=== PATIENT | female | born 1940 | race Caucasian/White ===

== ENCOUNTER 2022-03-13 18:28 | Emergency (ER) | payer MEDICARE, SELFPAY ==
[2022-03-13] VITALS (16 sets, daily range): BP systolic 124–139; BP diastolic 84–103; PULSE 76–93; RESP 15–24; TEMP 37; O2SAT 95–100
--- NOTE | ~2022-03-13 | CT_ITS ---
EXAMINATION: CT brain wo con DATE: 03/13/2022 19:08 INDICATION: ams . TECHNIQUE: Computed tomography (CT) of the head was performed without intravenous contrast. The mA wa s adjusted according to patient size. Iterative reconstruction technique was employed. The dose-lengt h product was 605.33 mGy-cm. COMPARISON: None FINDINGS: No acute intracranial hemorrhage or extra-axial fluid collection. No hydrocephalus, mass, or herniation. No acute ischemic infarct. Unremarkable dural venous sinus attenuation. No acute osseous abnormality. The aerated spaces are clear. Moderate atrophy and chronic white matter change. Atherosclerotic intracranial calcification. Prior r ight mastoid surgery. IMPRESSION: No acute intracranial process. Reviewed, dictated and finalized at location K.
--- NOTE | ~2022-03-13 | XR_ITS ---
EXAMINATION: XR chest 1V portable Exam Date/Time: 03/13/2022 18:40 CDT HISTORY: ams, HX AFIB, HX DEMENTIA, LETHARGIC TODAY Comparison: None available. RESULT: Lines, tubes, and devices: None. Lungs and pleura: Clear. Cardiomediastinal silhouette: Unremarkable. Other: No acute osseous or upper abdominal finding. IMPRESSION: No acute cardiopulmonary process. Reviewed, dictated and finalized at location K.
--- NOTE | 2022-03-13 18:36 | ECG_ITS ---
Measurements Intervals [place] Rate: 87 P: [place]: 0 QRS: 26 QRSD: 102 T: -32 QT: 389 QTc: 469 Interpretive Statements RHYTHM IS INDETERMINATE DUE TO BASELINE ARTIFACT NO PREVIOUS ECG AVAILABLE FOR COMPARISON Electronically Signed On 03-14-2022 17:12:26 CDT by Elsa Viera M.D.
--- NOTE | 2022-03-13 18:37 | ED.GENADULT ---
HPI - General Adult General Chief complaint: Weakness Stated complaint: harder to arouse from nap Source: RN notes reviewed History of Present Illness HPI narrative: Patient presents emergency department from home via EMS for altered mental status. Per the patient's family the patient was sleeping and was very hard to arouse when EMS arrived the patient awake and quickly with a sternal rub and was awake and alert the patient does have a history of baseline dementia patient is currently laying in bed she has no complaints at this time she denies any recent illness she denies any fevers or chills chest pain shortness of breath or abdominal Related Data Home Medications Medication Instructions Recorded Confirmed acetaminophen 325 mg tablet 325 mg PO Q6H PRN 08/16/21 02/05/22 (Tylenol) calcium carbonate 600 mg calcium 600 mg PO DAILY 08/16/21 02/05/22 (1,500 mg) tablet celecoxib 200 mg capsule (Celebrex) 200 mg PO DAILY 08/16/21 02/05/22 wheat dextrin 3 gram/3.8 gram oral 1.5 g PO BID 08/16/21 02/05/22 powder (Benefiber Sugar Free (dextrin)) Allergies Allergy/AdvReac Type Severity Reaction Status Date / Time No Known Allergies Allergy Verified 02/05/22 10:50 Review of Systems Review of Systems: Gen.: Denies fevers or chills Eyes: Denies eye pain or visual change ENT: Denies congestion Respiratory: Denies shortness of breath or cough CV: Denies chest pain GI: Denies abdominal pain nausea, emesis Musculoskeletal: Denies back pain or muscle pain Neuro: See HPI Skin: Denies rash Except as documented, all other systems reviewed and negative [facility] Past Medical History Medical History Alzheimer's dementia Anticoagulation adequate Atrial fibrillation with normal ventricular rate Breast CA Mitral regurgitation Right acoustic neuroma Venous insufficiency (chronic) (peripheral) Surgical History Surgical History Hx of craniotomy Social History Social History Social History: Smoking packs per day: 1 Smoking cigarettes per day: 20.0 Years smoked: 25 Smoking pack-years: 25.00 Smoking status: Never smoker Tobacco type: cigarettes Second hand tobacco smoke exposure: No Smoking end date: 06/09/88 Alcohol intake: never Substance use: never Substance use type: does not use Gender identity (if verbalized by the patient): Female Sexual Orientation (if Verbalized by the Patient): Straight or Heterosexual Exam Narrative: APPEARANCE: No acute distress, nontoxic, resting in bed EYES: EOMI HEENT: Normocephalic, atraumatic, OMM RESPIRATORY: No respiratory distress Clear to auscultation bilaterally with no rhonchi wheezing or rales. CARDIOVASCULAR: Regular rate and rhythm without murmurs rubs or gallops. ABDOMINAL: Soft, nontender, nondistended, no rebound or guarding MUSCULOSKELETAl: Moves all extremities. No clubbing, cyanosis or edema. NEURO: Awake and alert x 2. Following commands, speech normal, no focal deficits SKIN:: Warm, dry. No rashes lesions or abrasions PSYCHIATRIC: Normal affect/mood, Course Course Emergency Course: Patient is remained awake and alert family is present they are comfortable taking the patient home and patient would like to return home Discussed with Dr. Marlena Cabrera presentation work-up agrees with plan for discharge Discussed with patient results of workup and diagnosis. Discussed need for follow-up with primary care, proper use of medication, and reasons to return to the emergency department. Patient understands and agrees to current treatment plan patient's family states they have an appointment with her on this coming Friday Vital Signs Vital signs: Vital Signs Temperature 98.6 F 03/13/22 18:32 Pulse Rate 88 03/13/22 18:32 Respiratory Rate 16 03/13/22 18:32 P
[2022-03-13 19:10] LABS: Basophils Absolute Auto 0.1 K/mm3 (0.0-0.1); Basophils Percent Auto 0.9 % (0.2-1.2); Eosinophils Absolute Auto 0.1 K/mm3 (0-0.3); Eosinophils Percent Auto 1.8 % (0-4.4); Hematocrit 48.9 % (37.0-47.0); Hemoglobin 15.9 g/dL (12.0-15.0); Immature Granulocyte Absolute 0.02 K/mm3 (0.00-0.031); Immature Granulocyte Percent A 0.3 % (0-0.5); Lymphocytes Absolute Auto 1.67 K/mm3 (0.9-3.2); Lymphocytes Percent Auto 24.5 % (18.3-44.2); Mean Corpuscular HGB Conc 32.5 g/dl (32-36); Mean Corpuscular Hemoglobin 33.1 pg (26-34); Mean Corpuscular Volume 101.7 fl (80-100); Mean Platelet Volume 12.7 fl (7.4-10.4); Monocytes Absolute Auto 0.4 K/mm3 (0.1-0.6); Monocytes Percent Auto 6.3 % (2.6-8.5); Neutrophils Absolute Auto 4.5 K/mm3 (1.3-6.7); Neutrophils Percent Auto 66.2 % (45.5-73.1); Platelet Count Result 146 k/mm3 (150-375); Red Blood Count 4.81 M/mm3 (4.2-5.4); White Blood Count 6.8 K/mm3 (4.5-10.0)
[2022-03-13 19:21] LABS: INR 1.4; Partial Thromboplastin Time 30.2 SECONDS (22.3-36.8); Prothrombin Time 16.2 Seconds (11.1-14.7)
[2022-03-13 19:23] LABS: Alanine Aminotransferase 41 U/L (6-35); Albumin Level 4.3 g/dL (3.5-5.1); Alkaline Phosphatase 71 U/L (38-126); Anion Gap 10 mmol/L (8-16); Aspartate Amino Transferase 38 U/L (14-36); Bilirubin,Total 0.6 mg/dL (0.2-1.3); Blood Urea Nitrogen 33 mg/dL (7-17); Calcium 9.7 mg/dL (8.4-10.2); Carbon Dioxide 26 mmol/L (22-30); Chloride 101 mmol/L (98-107); Estimated Glomerular Filt Rate 36; Glucose 90 mg/dL (65-110); Potassium 4.4 mmol/L (3.4-5.0); Sodium 137 mmol/L (137-145)
[2022-03-13 20:43] LABS: Appearance Urine Cloudy (Clear); Bilirubin Urine Negative (Negative); Blood Urine Trace-lysed (Negative); Color Urine Yellow (Yellow); Glucose Urine UA Negative (Negative); Ketones Urine 1+ mg/dL (Negative); Leukocyte Esterase Ur 1+ LEU/UL (Negative); Nitrate Urine Positive (Negative); Protein Urine Negative (Negative); Specific Grav Ur 1.025 (1.001-1.035); Urobilinogen Urine 0.2 mg/dL (<2.0); pH Urine 5.5 (5.0-9.0)
[2022-03-13 20:46] LABS: Bacteria Urine 2+ /hpf; Mucus Urine Rare /lpf; Squamous Epithelial Cell Urine Rare /hpf (Few); WBC Urine 51-75 /hpf
[2022-03-13 20:47] LABS: Add Urine Microscopic? YES
[2022-03-13] MEDS: SODIUM CHLORIDE 0.9% IV 1,000 ML 999 ML IV CONT (20:47)
== END 2022-03-13 22:01 | disposition home or self-care (01) ==
PROVIDERS: Emergency Provider Emergency Medicine; PCP Family Medicine
DX: N39.0 Urinary tract infection, site not specified (principal); N28.9 Disorder of kidney and ureter, unspecified; G30.9 Alzheimer's disease, unspecified; F02.80 Dementia in other diseases classified elsewhere, unspecified severity, without behavioral disturbance, psychotic disturbance, mood disturbance, and anxiety; I48.91 Unspecified atrial fibrillation; I34.0 Nonrheumatic mitral (valve) insufficiency; I87.2 Venous insufficiency (chronic) (peripheral); Z85.3 Personal history of malignant neoplasm of breast; Z87.891 Personal history of nicotine dependence; Z79.01 Long term (current) use of anticoagulants
CPT/HCPCS: 36415; 70450; 71045; 80053; 81001; 85025; 85610; 85730; 87077; 87086; 87186; 93005; 96361; 96365; 99284; J0696; J7030

== ENCOUNTER 2022-04-03 13:31 | Outpatient (CLI) | payer MEDICARE, SELFPAY ==
--- NOTE | ~2022-04-03 | MM_ITS ---
EXAMINATION: MM screening natacha BI w sacha HISTORY: Screening mammogram TECHNIQUE: Craniocaudal and mediolateral oblique 3-D tomosynthesis images were obtained and synthetic 2-D images were generated. CAD analysis was submitted and interpreted. COMPARISON: No prior mammogram is available for comparison at this institution. BREAST PARENCHYMAL COMPOSITION: There are scattered areas of fibroglandular density. FINDINGS: There are lumpectomy changes in the upper outer quadrant of the right breast. No suspicious mass, calcification, or architectural distortion are identified in either breast to suggest malignan cy. IMPRESSION: 1. No mammographic evidence of malignancy. 2. Recommend routine screening mammography while the patient remains in good health. BI-RADS Category 2: Benign finding(s). Reviewed, dictated and finalized at location A. IMPRESSION: 1. No mammographic evidence of malignancy. 2. Recommend routine screening mammography while the patient remains in good he alth. BI-RADS Category 2: Benign finding(s).
== END 2022-04-03 13:32 | disposition home or self-care (01) ==
PROVIDERS: PCP Family Medicine; Visit Provider Nurse Practitioner Gerontology
DX: Z12.31 Encounter for screening mammogram for malignant neoplasm of breast (principal)
CPT/HCPCS: 77063; 77067

== ENCOUNTER 2022-05-06 13:41 | Outpatient (CLI) | payer MEDICARE, SELFPAY ==
[2022-05-06 14:34] LABS: Basophils Absolute Auto 0.1 K/mm3 (0.0-0.1); Eosinophils Absolute Auto 0.1 K/mm3 (0-0.3); Eosinophils Percent Auto 1.9 % (0-4.4); Hematocrit 44.1 % (37.0-47.0); Hemoglobin 14.1 g/dL (12.0-15.0); Immature Granulocyte Absolute 0.01 K/mm3 (0.00-0.031); Immature Granulocyte Percent A 0.2 % (0-0.5); Lymphocytes Absolute Auto 1.31 K/mm3 (0.9-3.2); Lymphocytes Percent Auto 24.9 % (18.3-44.2); Mean Corpuscular Volume 103.3 fl (80-100); Mean Platelet Volume 12.5 fl (7.4-10.4); Monocytes Absolute Auto 0.4 K/mm3 (0.1-0.6); Monocytes Percent Auto 7.8 % (2.6-8.5); Neutrophils Absolute Auto 3.4 K/mm3 (1.3-6.7); Neutrophils Percent Auto 64.2 % (45.5-73.1); Platelet Count Result 157 k/mm3 (150-375); Red Blood Count 4.27 M/mm3 (4.2-5.4); Red Cell Distribution Width 13.2 % (11.5-14.5); White Blood Count 5.3 K/mm3 (4.5-10.0)
[2022-05-06 14:36] LABS: Anion Gap 8 mmol/L (8-16); Blood Urea Nitrogen 18 mg/dL (7-17); Calcium 9.1 mg/dL (8.4-10.2); Carbon Dioxide 27 mmol/L (22-30); Chloride 103 mmol/L (98-107); Estimated Glomerular Filt Rate 60; Glucose 89 mg/dL (65-110); Potassium 4.3 mmol/L (3.4-5.0); Sodium 138 mmol/L (137-145)
== END 2022-05-06 13:42 | disposition home or self-care (01) ==
PROVIDERS: PCP Family Medicine; Visit Provider Nurse Practitioner Gerontology
DX: R41.0 Disorientation, unspecified (principal); N39.0 Urinary tract infection, site not specified; I48.91 Unspecified atrial fibrillation
CPT/HCPCS: 36415; 80048; 85025

== ENCOUNTER 2022-07-16 14:57 | Outpatient (CLI) | payer MEDICARE, SELFPAY ==
--- NOTE | ~2022-07-16 | XR_ITS ---
EXAMINATION: XR hip BI 2V w AP pelvis DATE: 07/16/2022 15:29 INDICATION: Dorsalgia, unspecified. TECHNIQUE: An anteroposterior view of the pelvis and 2 views of each hip were obtained. COMPARISON: None. FINDINGS: Bone alignment is normal. No fracture. There is mild osteoarthritis of the hips. IMPRESSION: 1. Mild osteoarthritis of the hips. Reviewed, dictated and finalized at location A. [place]
--- NOTE | ~2022-07-16 | XR_ITS ---
EXAMINATION: XR lumbar spine min 4V DATE: 07/16/2022 15:29 INDICATION: Dorsalgia, unspecified. TECHNIQUE: 5 views of lumbar spine were obtained. COMPARISON: None. FINDINGS: There is 3 mm anterolisthesis of L4 on L5. There is mild chronic height loss of L5 vertebra l body. There is severely decreased disc height at L5-S1 with endplate remodeling. There is multileve l facet joint osteoarthritis, severe bilaterally at L4-L5. IMPRESSION: 1. Severe lower lumbar spondylosis. Reviewed, dictated and finalized at location A. [facility]
== END 2022-07-16 14:58 | disposition home or self-care (01) ==
PROVIDERS: PCP Family Medicine; Visit Provider Nurse Practitioner Gerontology
DX: M16.0 Bilateral primary osteoarthritis of hip (principal); M47.896 Other spondylosis, lumbar region
CPT/HCPCS: 72110; 73521

== ENCOUNTER 2022-10-27 17:49 | Inpatient (IN) | payer MEDICARE, SELFPAY ==
[2022-10-27] VITALS (7 sets, daily range): BP systolic 83–112; BP diastolic 60–95; PULSE 77–111; RESP 15–18; TEMP 36.8; O2SAT 92–99; BMI 23.8
--- NOTE | ~2022-10-27 | XR_ITS ---
EXAMINATION: XR chest 1V portable DATE: 10/28/2022 07:00 INDICATION: Altered mental status. TECHNIQUE: A single frontal view of the chest was obtained. COMPARISON: Chest single view 03/13/2022 FINDINGS: There is no pneumonia, pleural effusion, or pneumothorax. The heart size is normal. There a re surgical clips in right breast. IMPRESSION: 1. No acute cardiopulmonary disease. Reviewed, dictated and finalized at location A.
--- NOTE | ~2022-10-27 | CT_ITS ---
EXAMINATION: CT brain wo con DATE: 10/27/2022 18:34 INDICATION: AMS . TECHNIQUE: Computed tomography (CT) of the head was performed without intravenous contrast. The mA wa s adjusted according to patient size. Iterative reconstruction technique was employed. The dose-lengt h product was 529.67 mGy-cm. COMPARISON: 03/13/2022. FINDINGS: No acute intracranial hemorrhage or extra-axial fluid collection. No hydrocephalus, mass, or herniation. No acute ischemic infarct. Unremarkable dural venous sinus attenuation. No acute osseous abnormality. Status post right mastoidectomy. The aerated spaces are clear. Moderate atrophy and chronic white matter change. Atherosclerotic intracranial calcification. Right l ens replacement. IMPRESSION: No acute intracranial process. Reviewed, dictated and finalized at location K.
--- NOTE | 2022-10-27 17:55 | ECG_ITS ---
Measurements Intervals [place] Rate: 91 P: [place]: 0 QRS: 59 QRSD: 85 T: 212 QT: 350 QTc: 432 Interpretive Statements ATRIAL FIBRILLATION CANNOT RULE OUT SEPTAL INFARCT, AGE INDETERMINATE BORDERLINE ST-T WAVE ABNORMALITY- ANTEROLAT/INF LEADS BASELINE ARTIFACT- I, II, III, AVR, AVL, AVF, V1-V6 ABNORMAL ECG COMPARED TO ECG 03/13/2022 19:14:13 NO SIGNIFICANT CHANGES Electronically Signed On 10-27-2022 22:02:16 CDT by Gustavo Phillip D.O.
--- NOTE | 2022-10-27 18:12 | ED.GENADULT ---
HPI - General Adult General Chief complaint: Weakness Stated complaint: lethargic, weak Time Seen by Provider: 10/27/22 17:57 History of Present Illness HPI narrative: 82 old female presented the ED via EMS for evaluation of weakness. EMS was called by family due to concerns that she was having some low blood pressure and increased altered mental status. Upon arrival to the scene by EMS they noticed the patient had a facial droop. Family states this facial droop is not new. Patient's BP on scene was 70/40. EMS states that the family reported the patient was feeling weak last night and then worsened today. On upon arrival to the ED family states that the patient had a near syncopal episode as she was walking from the car to the porch. Patient does have severe dementia and daughter states that the patient resets approximate every 5 minutes. Daughter states that the patient is currently at her normal mental baseline which is confusion and mumbling speech. Related Data Home Medications Medication Instructions Recorded Confirmed acetaminophen 325 mg tablet 325 mg PO Q6H PRN 08/16/21 08/13/22 (Tylenol) Allergies Allergy/AdvReac Type Severity Reaction Status Date / Time meperidine [From Demerol] Allergy Vomiting Verified 08/14/22 14:22 cefdinir AdvReac Severe Diarrhea Verified 08/14/22 14:22 Penicillins AdvReac Rash Verified 08/14/22 14:22 Review of Systems Review of Systems: ROS unobtainable: Yes unobtainable due to medical condition PMFSH Past Medical History Medical History Alzheimer's dementia Anticoagulation adequate Atrial fibrillation with normal ventricular rate Breast CA Mitral regurgitation Right acoustic neuroma Venous insufficiency (chronic) (peripheral) Surgical History Surgical History Hx of craniotomy Social History Social History Social History: Smoking packs per day: 1 Smoking cigarettes per day: 20.0 Years smoked: 25 Smoking pack-years: 25.00 Smoking status: Former smoker Tobacco type: cigarettes Second hand tobacco smoke exposure: No Smoking end date: 06/09/88 Alcohol intake: never Substance use: never Substance use type: does not use Living arrangements: with family Occupation/Education: retired Gender identity (if verbalized by the patient): Female Sexual Orientation (if Verbalized by the Patient): Straight or Heterosexual Exam Narrative: APPEARANCE: Well appearing, no pain, no distress, well-nourished. HEAD: normocephalic, atraumatic. EYES: PERRLA/EOMI, conjunctivae clear. NOSE: Normal no drainage NECK: Supple. No adenopathy, no masses. RESPIRATORY: Airway patent, respirations nonlabored. Clear to auscultation bilaterally, no rales, rhonchi, wheezing. CARDIOVASCULAR: Regular rate and rhythm without murmurs rubs or gallops. ABDOMINAL: Soft, nontender, nondistended, normal bowel sounds MUSCULOSKELETAL: Moves all extremities. Strength/ROM intact, No edema, No calf tenderness. NEURO: Alert. Confused, neurovascular intact with no focal neurodeficit SKIN: Warm, dry. Normal Color Course Course Emergency Course: 82-year-old female presenting for evaluation of altered mental status and possible orthostatic hypotension. Patient is afebrile with no leukocytosis. Patient's blood pressures were soft upon arrival but did improve with rehydration. Patient's chemistries are similar to his baseline with a possible CARL. UA shows no evidence of urinary tract infection and patient was negative for influenza RSV and for COVID. Head CT showed no acute intracranial normality. EKG shows the patient is an her A-fib. Case was discussed with the hospitalist and patient was accepted for admission for further rehydration. Family was updated on the results of the work-up and plan for admiss
[2022-10-27 18:21] LABS: Basophils Percent Auto 0.7 % (0.2-1.2); Eosinophils Percent Auto 0.5 % (0-4.4); Hemoglobin 14.4 g/dL (12.0-15.0); Immature Granulocyte Absolute 0.02 K/mm3 (0.00-0.031); Immature Granulocyte Percent A 0.4 % (0-0.5); Immature Platelet Fraction Pct 9.3 % (0.9-11.2); Lymphocytes Absolute Auto 0.79 K/mm3 (0.9-3.2); Lymphocytes Percent Auto 14.3 % (18.3-44.2); Mean Corpuscular Hemoglobin 32.3 pg (26-34); Mean Corpuscular Volume 100.9 fl (80-100); Mean Platelet Volume 11.8 fl (7.4-10.4); Monocytes Absolute Auto 0.4 K/mm3 (0.1-0.6); Monocytes Percent Auto 7.6 % (2.6-8.5); Neutrophils Absolute Auto 4.2 K/mm3 (1.3-6.7); Neutrophils Percent Auto 76.5 % (45.5-73.1); Platelet Count Result 134 k/mm3 (150-375); Red Blood Count 4.46 M/mm3 (4.2-5.4); Red Cell Distribution Width 12.4 % (11.5-14.5); White Blood Count 5.5 K/mm3 (4.5-10.0)
[2022-10-27 18:35] LABS: INR 1.2; Partial Thromboplastin Time 27.8 SECONDS (22.3-36.8); Prothrombin Time 16.3 Seconds (11.1-14.7)
[2022-10-27 18:39] LABS: Alanine Aminotransferase 17 U/L (6-35); Albumin Level 3.4 g/dL (3.5-5.1); Alkaline Phosphatase 47 U/L (38-126); Anion Gap 8 mmol/L (8-16); Aspartate Amino Transferase 22 U/L (14-36); Bilirubin,Total 0.8 mg/dL (0.2-1.3); Blood Urea Nitrogen 16 mg/dL (7-17); Calcium 8.9 mg/dL (8.4-10.2); Carbon Dioxide 28 mmol/L (22-30); Chloride 104 mmol/L (98-107); Estimated CRCL calculation 30 ml/min; Estimated Glomerular Filt Rate 43; Glucose 131 mg/dL (65-110); Potassium 3.8 mmol/L (3.4-5.0); Sodium 140 mmol/L (137-145)
[2022-10-27] MEDS: SODIUM CHLORIDE 0.9% IV 1,000 ML 999 ML IV CONT (19:08)
[2022-10-27 19:51] LABS: Appearance Urine Clear (Clear); Bilirubin Urine Negative (Negative); Blood Urine Negative (Negative); Color Urine Yellow (Yellow); Glucose Urine UA Negative (Negative); Ketones Urine Negative (Negative); Leukocyte Esterase Ur Negative LEU/UL (Negative); Nitrate Urine Negative (Negative); Protein Urine Negative (Negative); Urobilinogen Urine 0.2 mg/dL (<2.0)
[2022-10-27 19:55] LABS: Influenza A QL RT-PCR Negative (Negative); Influenza B QL RT-PCR Negative (Negative); RSV RNA, RT-PCR Negative (Negative); SARS-CoV-2 RNA PCR Negative (Negative)
[2022-10-27 19:56] LABS: Add Urine Microscopic? NO
--- NOTE | 2022-10-27 21:31 | PM.IMHP ---
H&P: HPI History of Present Illness Date/Time: 10/27/22 21:31 Chief Complaint: ALTERED MENTAL STATUS Narrative: This is an 82-year-old female with past medical history significant for advanced dementia, atrial fibrillation, rate controlled anticoagulated, patient lives at home with daughter and splits up the time with son as well she was spending the weekend with the son when it was noted that she has not been her usual has not been eating well or drinking well, has been tired and spending most of the day in bed, drowsy. Most of the history is has been obtained upon talking with daughter who is at bedside as patient has advanced dementia and can not provide meaningful history. Preliminary workup has been for the most part unrevealing. Patient is been placed in observation for further evaluation management and treatment. EXAMINATION: CT brain wo con DATE: 10/27/2022 18:34 INDICATION: AMS . TECHNIQUE: Computed tomography (CT) of the head was performed without intravenous contrast. The mA was adjusted according to patient size. Iterative reconstruction technique was employed. The dose-length product was 529.67 mGy-cm. COMPARISON: 03/13/2022. FINDINGS: No acute intracranial hemorrhage or extra-axial fluid collection. No hydrocephalus, mass, or herniation. No acute ischemic infarct. Unremarkable dural venous sinus attenuation. No acute osseous abnormality. Status post right mastoidectomy. The? aerated spaces are clear. Moderate atrophy and chronic white matter change. Atherosclerotic intracranial calcification. Right lens replacement. IMPRESSION:? No acute intracranial process. Review of Systems Review of Systems: ROS unobtainable: Yes unobtainable due to medical condition ( Advanced dementia) [facility] Past Medical History Medical History Alzheimer's dementia Anticoagulation adequate Atrial fibrillation with normal ventricular rate Breast CA Mitral regurgitation Right acoustic neuroma Venous insufficiency (chronic) (peripheral) Surgical History Surgical History Hx of craniotomy Family History Family History (Updated 10/27/22 @ 22:38 by Jacinta Calixto RN) Other Unknown family medical history Social History Social History Social History: Smoking packs per day: 1 Smoking cigarettes per day: 20.0 Years smoked: 25 Smoking pack-years: 25.00 Smoking status: Former smoker Second hand tobacco smoke exposure: No Alcohol intake: never Substance use: never Substance use type: does not use Lack of Transportation: No Lack of Food: Never True Current Housing: I Have Housing Concerned About Future Housing: No Difficulty Paying Gas/Electric Bills: No Difficulty Paying for Meds: No Currently Unemployed: No Education: Trade/Vocational Certificate Difficulty w/ Childcare or Family Care: No Living arrangements: with family Occupation/Education: retired Gender identity (if verbalized by the patient): Female Sexual Orientation (if Verbalized by the Patient): Straight or Heterosexual Spiritual care concerns: No Meds Home Medications and Allergies Home Medications Medication Instructions Recorded Confirmed Type acetaminophen 325 mg tablet 650 mg PO BID 08/16/21 10/27/22 History (Tylenol) metoprolol succinate 50 mg 50 mg PO DAILY #90 tabs 02/05/22 10/27/22 Rx tablet,extended release 24 hr Benefiber (guar gum) 1 tab-cap PO BID PRN Constipation 10/27/22 10/27/22 History Marlow' Colon Health 1 tab-cap PO DAILY PRN diahrea 10/27/22 10/27/22 History apixaban 5 mg tablet (Eliquis) 5 mg PO BID 10/27/22 10/27/22 History cranberry conc-vit 1 ea PO DAILY PRN UTI 10/27/22 10/27/22 History K-kwawagd-PWM-bromelain 3,875 mg/30 mL oral liquid (UTI-Stat) memantine 10 mg tablet 10 mg PO B
--- NOTE | 2022-10-27 22:23 | ADMGEN ---
This patient, Kalee Vo, was admitted to Medical Room 254-01. Patient/family oriented to hospital policies and general routines including ID bracelet, bed and alarms, visiting hours, pain management, procedures, bathroom and other care routines, personal items, smoking policy, room service/diet, and visiting hours. Information on how to activate the Rapid Response Team has been discussed. Patient/Family are encouraged to report perceived risks to care and to ask questions if they do not understand what they are told or what they should do.
[2022-10-27] MEDS: SODIUM CHLORIDE 0.9% IV 1,000 ML 75 ML IV CONT (22:36)
[2022-10-28 05:20] VITALS: BP 115/82; PULSE 83; RESP 20; TEMP 36.8; O2SAT 100
[2022-10-28 08:00] VITALS: O2SAT 100
--- NOTE | 2022-10-28 10:04 | PM.IMPN ---
Progress Note: A&P Assessment and Plan (1) AMS (altered mental status): Code(s): R41.82 - Altered mental status, unspecified Status: Acute Assessment and Plan: 10/28/2022: chart reviewed. Patient presented with generalized weakness and altered sensorium. Blood pressure was low right-sided facial droop is not new. CT head was negative. Blood pressure improved with IV fluid bolus. Near syncopal episode. Has severe vascular dementia at baseline. AFib of chronic rate controlled on metoprolol. Anticoagulated with Eliquis chronically. History of right a caustic neuroma. Influenza RSV and COVID negative. UA negative for UTI. Chest x-ray is negative for any pneumonia. WBC count is normal. Patient afebrile. Patient currently somnolent mumbles on stimulation (2) Atrial fibrillation: Code(s): I48.91 - Unspecified atrial fibrillation Status: Acute Assessment and Plan: rate control and anticoagulated (3) Weakness: Code(s): R53.1 - Weakness Status: Acute Assessment and Plan: patient with poor per orally intake encourage per oral supportive care suspect progression of dementia Plan Recheck labs in a.m. Subjective Date/time seen: 10/28/22 10:04 Interval history: Chart reviewed. Patient presented with generalized weakness and altered sensorium. Blood pressure was low right-sided facial droop is not new. CT head was negative. Blood pressure improved with IV fluid bolus. Near syncopal episode. Has severe vascular dementia at baseline. AFib of chronic rate controlled on metoprolol. Anticoagulated with Eliquis chronically. History of right a caustic neuroma. Influenza RSV and COVID negative. UA negative for UTI. Chest x-ray is negative for any pneumonia. WBC count is normal. Patient afebrile. Patient currently somnolent mumbles on stimulation Review of Systems Review of Systems: ROS unobtainable: Yes unobtainable due to medical condition ( Advanced dementia) Exam Narrative: APPEARANCE: Somnolent, does not appear in acute distress HEAD: normocephalic, atraumatic. EYES: PERRLA/EOMI, conjunctivae clear. NOSE: Normal no drainage NECK: Supple. No adenopathy, no masses. RESPIRATORY: Airway patent, respirations nonlabored. Clear to auscultation bilaterally, no rales, rhonchi, wheezing. CARDIOVASCULAR: Regular rate and rhythm without murmurs rubs or gallops. ABDOMINAL: Soft, nontender, nondistended, normal bowel sounds MUSCULOSKELETAL: Moves all extremities. Strength/ROM intact, No edema, No calf tenderness. NEURO: Somnolent SKIN: Warm, dry. Normal Color Objective Data Vital Signs Vital Signs: Vital Signs - 24 hr 10/27/22 17:48 10/27/22 18:00 10/27/22 19:00 Temperature 98.3 F Pulse Rate 111 H 85 88 Respiratory Rate 16 18 15 Blood Pressure 102/83 83/60 L 93/72 L Pulse Oximetry 99 92 97 Oxygen Delivery 10/27/22 20:00 10/27/22 21:00 10/27/22 21:30 Temperature Pulse Rate 77 91 79 Respiratory Rate 16 15 16 Blood Pressure 111/95 H 100/61 98/75 L Pulse Oximetry 98 93 95 Oxygen Delivery 10/27/22 22:00 10/27/22 23:08 10/27/22 22:00 Temperature 98.3 F Pulse Rate 88 104 H Respiratory Rate 16 18 Blood Pressure 112/76 111/79 Pulse Oximetry 97 99 Oxygen Delivery Room Air 10/28/22 05:20 Temperature 98.2 F Pulse Rate 83 Respiratory Rate 20 Blood Pressure 115/82 Pulse Oximetry 100 Oxygen Delivery Intake/Output Intake/Output: Intake & Output 10/25/22 10/26/22 10/27/22 10/28/22 23:59 23:59 23:59 23:59 Intake Total 1000 Output Total 600 Balance 1000 -600 Meds/Results Medications: Active Medications Generic Name Dose Route Start Last Admin Trade Name [place] PRN Reason Stop Dose Admin Acetaminophen 650 mg 10/28/22 09:00 Acetaminophen 325 Mg Tablet PO BID [facility] Apixaban 5 mg 10/28/22 09:00 Apixaban 5 Mg Tablet PO Q12HR [facility] Calcium Polycarbophil 625 mg 10/28/22 01:2
[2022-10-28] MEDS: MEMANTINE 10 MG TABLET PO ×2 (10:43→20:59)
[2022-10-28] MEDS: APIXABAN 5 MG TABLET PO ×2 (10:43→20:59)
[2022-10-28] MEDS: SODIUM CHLORIDE 0.9% IV 1,000 ML 75 ML IV CONT (12:04)
[2022-10-28 14:00] VITALS: BP 105/86; PULSE 94; RESP 18; TEMP 36.3; O2SAT 100
--- NOTE | 2022-10-28 15:16 | PCCCNOTE ---
On 10/28/22, the student, Carlotta Middleton, provided care and completed [facility] documentation on this patient. I have reviewed the student's documentation and agree with the findings.
[2022-10-28 18:24] VITALS: PULSE 90
[2022-10-28] MEDS: ACETAMINOPHEN 325 MG TABLET 650 MG PO (18:24)
[2022-10-28] MEDS: METOPROLOL SUCCINATE EXT REL 50 MG TABCR PO (18:24)
[2022-10-28] MEDS: ROSUVASTATIN 5 MG TABLET PO (20:59)
[2022-10-28 21:19] VITALS: BP 107/71; PULSE 102; RESP 18; TEMP 35.8; O2SAT 97
[2022-10-29] MEDS: SODIUM CHLORIDE 0.9% IV 1,000 ML 75 ML IV CONT (02:31)
[2022-10-29 03:19] VITALS: BP 114/84; PULSE 100; RESP 18; TEMP 36.2; O2SAT 97
[2022-10-29 05:48] LABS: Basophils Percent Auto 0.5 % (0.2-1.2); Eosinophils Absolute Auto 0.1 K/mm3 (0-0.3); Eosinophils Percent Auto 1.6 % (0-4.4); Hemoglobin 13.7 g/dL (12.0-15.0); Immature Granulocyte Absolute 0.01 K/mm3 (0.00-0.031); Immature Granulocyte Percent A 0.2 % (0-0.5); Immature Platelet Fraction Pct 7.9 % (0.9-11.2); Lymphocytes Percent Auto 29.9 % (18.3-44.2); Mean Corpuscular HGB Conc 32.6 g/dl (32-36); Mean Corpuscular Hemoglobin 32.9 pg (26-34); Mean Platelet Volume 11.8 fl (7.4-10.4); Monocytes Absolute Auto 0.5 K/mm3 (0.1-0.6); Monocytes Percent Auto 8.5 % (2.6-8.5); Neutrophils Absolute Auto 3.4 K/mm3 (1.3-6.7); Neutrophils Percent Auto 59.3 % (45.5-73.1); Platelet Count Result 120 k/mm3 (150-375); Red Blood Count 4.16 M/mm3 (4.2-5.4); Red Cell Distribution Width 12.4 % (11.5-14.5); White Blood Count 5.7 K/mm3 (4.5-10.0)
[2022-10-29 06:31] LABS: Alanine Aminotransferase 14 U/L (6-35); Albumin Level 3.1 g/dL (3.5-5.1); Alkaline Phosphatase 46 U/L (38-126); Anion Gap 3 mmol/L (8-16); Aspartate Amino Transferase 21 U/L (14-36); Bilirubin,Total 0.7 mg/dL (0.2-1.3); Blood Urea Nitrogen 11 mg/dL (7-17); Calcium 8.7 mg/dL (8.4-10.2); Carbon Dioxide 26 mmol/L (22-30); Chloride 110 mmol/L (98-107); Estimated CRCL calculation 36 ml/min; Estimated Glomerular Filt Rate 53; Glucose 84 mg/dL (65-110); Magnesium 1.8 mg/dL (1.6-2.3); Potassium 3.8 mmol/L (3.4-5.0); Sodium 139 mmol/L (137-145)
[2022-10-29] MEDS: MEMANTINE 10 MG TABLET PO (08:08)
[2022-10-29] MEDS: ACETAMINOPHEN 325 MG TABLET 650 MG PO (08:08)
[2022-10-29] MEDS: APIXABAN 5 MG TABLET PO (08:08)
--- NOTE | 2022-10-29 12:20 | PM.DS ---
DS: Admitting Diagnosis Discharge Date 10/29/2022 Admitting Diagnosis Altered mental status DS: Discharge Diagnosis Discharge Diagnosis (1) AMS (altered mental status): Code(s): R41.82 - Altered mental status, unspecified Status: Acute (2) Atrial fibrillation: Code(s): I48.91 - Unspecified atrial fibrillation Status: Acute (3) Weakness: Code(s): R53.1 - Weakness Status: Acute DS: Summary Hospital Course Hospital Course: Patient presented with generalized weakness and altered sensorium.? Blood pressure was low upon presentation. She has right-sided facial droop which is not new.? CT head was negative.? Blood pressure improved with IV fluid bolus.? Near syncopal episode prior to presentation as well. 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 AFib of chronic rate controlled on metoprolol.? Anticoagulated with Eliquis chronically.? History of right acoustic neuroma.? Influenza RSV and COVID negative.? UA negative for UTI.? Chest x-ray is negative for any pneumonia.? WBC count is normal.? Patient afebrile.? Patient currently somnolent mumbles on stimulation how over improved with IV hydration was back to baseline the time of discharge. Going to get discharged back to her family at home. Time Spent with Patient Time attestation: Total time spent providing and/or coordinating discharge services: 35 minutes Exam Narrative: APPEARANCE: Alert and conversant does not appear in acute distress HEAD: normocephalic, atraumatic. EYES: PERRLA/EOMI, conjunctivae clear. NOSE: Normal no drainage NECK: Supple. No adenopathy, no masses. RESPIRATORY: Airway patent, respirations nonlabored. Clear to auscultation bilaterally, no rales, rhonchi, wheezing. CARDIOVASCULAR: Regular rate and rhythm without murmurs rubs or gallops. ABDOMINAL: Soft, nontender, nondistended, normal bowel sounds MUSCULOSKELETAL: Moves all extremities. Strength/ROM intact, No edema, No calf tenderness. NEURO: Alert and conversant SKIN: Warm, dry. Normal Color DS: Data Data Completed and Pending Labs on day of discharge: Labs from last 24 hours 10/29/22 05:40 WBC 5.7 RBC 4.16 L Hgb 13.7 Hct 42.0 MCV 101.0 H MCH 32.9 MCHC 32.6 RDW 12.4 Plt Count 120 L MPV 11.8 H Immature Gran % (Auto) 0.2 Neut % (Auto) 59.3 Lymph % (Auto) 29.9 [place] % (Auto) 8.5 Eos % (Auto) 1.6 Baso % (Auto) 0.5 Lymph # (Auto) 1.70 [place] # (Auto) 0.5 Eos # (Auto) 0.1 Baso # (Auto) 0.0 Abs Immat Gran (auto) 0.01 Absolute Neuts (auto) 3.4 Absolute Nucleated RBC 0.0 Nucleated RBC % 0.0 % Immature Plt Fraction 7.9 Sodium 139 Potassium 3.8 Chloride 110 H Carbon Dioxide 26 Anion Gap 3 L BUN 11 D Creatinine 1.00 Estim Creat Clear Calc 36 Estimated GFR 53 L Glucose 84 Calcium 8.7 Magnesium 1.8 Total Bilirubin 0.7 AST 21 ALT 14 Alkaline Phosphatase 46 Total Protein 6.0 L Albumin 3.1 L Imaging Radiologist's impression: ITS Impressions Head CT 10/27/22 18:47 IMPRESSION: No acute intracranial process. Chest X-Ray 10/28/22 07:20 IMPRESSION: 1. No acute cardiopulmonary disease. Discharge Plan Discharge Attending physician on discharge: Jaspal Ge Discharging Clinician: Jaspal Ge Anticipated Discharge Date/Time: 10/29/22 12:16 Patient Disposition: Home, Self-Care Activity: as tolerated Diet: regular Patient Instructions: Antibiotic Form, Apixaban (By mouth) Stand Alone Forms: General Discharge Information Follow-up/Referrals: Marlena Cabrera MD [Primary Care Provider] - 1 Week Discharge Medications: Continued acetaminophen [Tylenol] 325 mg tablet 650 mg PO BID metoprolol succinate 50 mg tablet extended release 24 hr 50 mg PO DAILY Qty: 90 2RF UTI-Stat 3,875 mg/30 mL Liquid 1 ea PO DAILY PRN (Reason: UTI) Benefiber (guar gum) 1 tab-cap PO BID PRN (Reason: Constipation) Jeffrey
== END 2022-10-29 13:45 | disposition home or self-care (01) | DRG 316 ==
LOC: ANHED 18:32 → ANH2MED 21:46
PROVIDERS: Admitting Provider Internal Medicine; Emergency Provider Emergency Medicine; PCP Family Medicine; Visit Provider Internal Medicine
DX: I95.9 Hypotension, unspecified (principal); R55 Syncope and collapse; E86.0 Dehydration; E86.1 Hypovolemia; R41.82 Altered mental status, unspecified; F01.C0 Vascular dementia, severe, without behavioral disturbance, psychotic disturbance, mood disturbance, and anxiety; I48.91 Unspecified atrial fibrillation; R53.1 Weakness; R29.810 Facial weakness; I87.2 Venous insufficiency (chronic) (peripheral); Z20.822 Contact with and (suspected) exposure to COVID-19; Z79.01 Long term (current) use of anticoagulants; Z85.3 Personal history of malignant neoplasm of breast; Z87.891 Personal history of nicotine dependence
CPT/HCPCS: 36415; 70450; 71045; 80053; 81003; 83735; 85025; 85055; 85610; 85730; 87637; 93005; 96360; 96361; 99285; A9270; G0378; J7030

== ENCOUNTER 2023-01-02 15:45 | Emergency (ER) | payer MEDICARE, SELFPAY ==
[2023-01-02] VITALS (15 sets, daily range): BP systolic 93–131; BP diastolic 77–113; PULSE 69–116; RESP 10–35; TEMP 36.9; O2SAT 91–99
--- NOTE | 2023-01-02 16:07 | ED.FEMALEGU ---
HPI - Female Genitourinary General Chief complaint: Urogenital-Female Stated complaint: UTI Time Seen by Provider: 01/02/23 15:51 History of Present Illness HPI Narrative: Patient is an 82-year-old female with a history of vascular dementia presenting with concerns for UTI. Family is at bedside and provides most of the history. States that she has been having episodes of confusion for the last several days. They tested her urine at home with an at-home urinalysis kit and it was faintly positive. States that she has been somewhat combative today which is not like her. Denies cough or respiratory distress. No vomiting. No diarrhea. Patient denies any complaints at this time. Related Data Home Medications Medication Instructions Recorded Confirmed acetaminophen 325 mg tablet 650 mg PO BID 08/16/21 01/07/23 (Tylenol) Benefiber (guar gum) 1 tab-cap PO BID PRN Constipation 10/27/22 01/07/23 [employer] 1 tab-cap PO DAILY PRN diahrea 10/27/22 01/07/23 apixaban 5 mg tablet (Eliquis) 5 mg PO BID 10/27/22 01/07/23 cranberry conc-vit 1 ea PO DAILY PRN UTI 10/27/22 01/07/23 P-[id number]-[id number]-bromelain 3,875 mg/30 mL oral liquid (UTI-Stat) Allergies Allergy/AdvReac Type Severity Reaction Status Date / Time meperidine [From Demerol] Allergy Vomiting Verified 01/07/23 14:48 cefdinir AdvReac Severe Diarrhea Verified 01/07/23 14:48 Penicillins AdvReac Rash Verified 01/07/23 14:48 Review of Systems Review of Systems: All systems reviewed & are unremarkable except as noted in HPI and below PMFSH Past Medical History Medical History Alzheimer's dementia Anticoagulation adequate Atrial fibrillation with normal ventricular rate Breast CA Mitral regurgitation Right acoustic neuroma Venous insufficiency (chronic) (peripheral) Surgical History Surgical History Hx of craniotomy Family History Family History Other Unknown family medical history Social History Social History Social History: Smoking packs per day: 1 Smoking cigarettes per day: 20.0 Years smoked: 25 Smoking pack-years: 25.00 Smoking status: Former smoker Second hand tobacco smoke exposure: No Alcohol intake: never Substance use: never Substance use type: does not use Lack of Transportation: No Lack of Food: Never True Current Housing: I Have Housing Concerned About Future Housing: No Difficulty Paying Gas/Electric Bills: No Difficulty Paying for Meds: No Currently Unemployed: No Education: Trade/Vocational Certificate Difficulty w/ Childcare or Family Care: No Living arrangements: with family Occupation/Education: retired Gender identity (if verbalized by the patient): Female Sexual Orientation (if Verbalized by the Patient): Straight or Heterosexual Spiritual care concerns: No Exam Narrative: GENERAL: In no acute distress, pleasantly demented HEAD: Normocephalic, atraumatic. EYES: PERRLA and EOMI. ENT: Nares clear, no rhinorrhea or epistaxis. Mucous membranes moist. NECK: Supple. CHEST: Clear to auscultation. No respiratory distress. HEART: Regular rate and rhythm ABDOMEN: Soft, nontender, nondistended EXTREMITIES: Normal range of motion. No edema. SKIN: Warm, dry, no rash. NEURO: No focal deficits. Alert and oriented x1 PSYCH: Normal mood and affect. Course Vital Signs Vital signs: Vital Signs Temperature 98.4 F 01/02/23 15:49 Pulse Rate 69 01/02/23 15:49 Respiratory Rate 10 L 01/02/23 15:49 Pulse Oximetry 99 01/02/23 15:49 Oxygen Delivery Room Air 01/02/23 15:49 Temperature 98.4 F 01/02/23 15:49 Pulse Rate 100 01/02/23 20:40 Respiratory Rate 15 01/02/23 20:40 Blood Pressure 106/92 H
[2023-01-02 16:53] LABS: Basophils Percent Auto 0.8 % (0.2-1.2); Eosinophils Absolute Auto 0.1 K/mm3 (0-0.3); Eosinophils Percent Auto 1.6 % (0-4.4); Hemoglobin 15.2 g/dL (12.0-15.0); Immature Granulocyte Absolute 0.01 K/mm3 (0.00-0.031); Immature Granulocyte Percent A 0.2 % (0-0.5); Lymphocytes Absolute Auto 1.04 K/mm3 (0.9-3.2); Lymphocytes Percent Auto 20.9 % (18.3-44.2); Mean Corpuscular HGB Conc 31.7 g/dl (32-36); Mean Corpuscular Hemoglobin 32.1 pg (26-34); Mean Corpuscular Volume 101.3 fl (80-100); Mean Platelet Volume 10.7 fl (7.4-10.4); Monocytes Absolute Auto 0.4 K/mm3 (0.1-0.6); Monocytes Percent Auto 7.4 % (2.6-8.5); Neutrophils Absolute Auto 3.4 K/mm3 (1.3-6.7); Neutrophils Percent Auto 69.1 % (45.5-73.1); Platelet Count Result 166 k/mm3 (150-375); Red Blood Count 4.74 M/mm3 (4.2-5.4); Red Cell Distribution Width 12.4 % (11.5-14.5)
[2023-01-02 17:04] LABS: Appearance Urine Clear (Clear); Bacteria Urine 2+ /hpf; Bilirubin Urine Negative (Negative); Blood Urine Negative (Negative); Color Urine Yellow (Yellow); Glucose Urine UA Negative (Negative); Ketones Urine Negative (Negative); Leukocyte Esterase Ur 2+ LEU/UL (Negative); Nitrate Urine Positive (Negative); Non Pathogenic Casts 0-2; Protein Urine Negative (Negative); RBC Urine 0-2 /hpf (0-2); Specific Grav Ur 1.011 (1.001-1.035); Squamous Epithelial Cell Urine None seen /hpf (Few); Urobilinogen Urine 0.2 mg/dL (<2.0); pH Urine 7.5 (5.0-9.0)
[2023-01-02 17:05] LABS: Add Urine Microscopic? YES; Anion Gap 7 mmol/L (8-16); Blood Urea Nitrogen 14 mg/dL (7-17); Calcium 9.6 mg/dL (8.4-10.2); Carbon Dioxide 31 mmol/L (22-30); Chloride 102 mmol/L (98-107); Estimated Glomerular Filt Rate 60; Glucose 98 mg/dL (65-110); Potassium 3.8 mmol/L (3.4-5.0); Sodium 140 mmol/L (137-145)
--- NOTE | 2023-01-02 17:27 | PC.NURSE ---
Pt pulled out IV when she lifted her arm. Pt did not intentionally pull out IV.
[2023-01-02] MEDS: LACTATED RINGERS 1,000 ML 999 ML IV CONT (18:33)
[2023-01-02] MEDS: CIPROFLOXACIN 500 MG TAB PO (18:34)
== END 2023-01-02 20:42 ==
PROVIDERS: Emergency Provider Emergency Medicine; PCP Family Medicine
DX: N39.0 Urinary tract infection, site not specified (principal); F01.50 Vascular dementia, unspecified severity, without behavioral disturbance, psychotic disturbance, mood disturbance, and anxiety; G30.9 Alzheimer's disease, unspecified; F02.80 Dementia in other diseases classified elsewhere, unspecified severity, without behavioral disturbance, psychotic disturbance, mood disturbance, and anxiety; I48.91 Unspecified atrial fibrillation; I34.0 Nonrheumatic mitral (valve) insufficiency; I87.2 Venous insufficiency (chronic) (peripheral); Z85.3 Personal history of malignant neoplasm of breast; Z87.891 Personal history of nicotine dependence; Z79.01 Long term (current) use of anticoagulants
CPT/HCPCS: 36415; 80048; 81001; 85025; 87077; 87086; 87088; 96360; 96361; 99283; A9270; J7120

== ENCOUNTER 2023-05-31 14:55 | Inpatient (IN) | payer MEDICARE, SELFPAY ==
[2023-05-31] VITALS (22 sets, daily range): BP systolic 104–126; BP diastolic 71–108; PULSE 89–168; RESP 14–27; TEMP 36.1; O2SAT 97–100
--- NOTE | ~2023-05-31 | CT_ITS ---
EXAMINATION: CT brain wo con DATE: 06/01/2023 11:13 INDICATION: Transient alteration of awareness. Altered mental state. TECHNIQUE: Computed tomography (CT) of the head was performed without intravenous contrast. The mA wa s adjusted according to patient size. Iterative reconstruction technique was employed. Exam dose: 52 9.67 mGy-cm total exam DLP. COMPARISON: 11/12/2022 CT brain FINDINGS: Bilateral carotid siphon internal carotid artery calcifications, right vertebral artery pasha cification, basilar artery calcification. There is nonspecific diminished attenuation of the cerebral white matter, likely due to chronic small vessel ischemic changes. There is prominent cerebral cortical volume loss, particularly at the frontal and temporal lobes. The re is prominent cerebellar volume loss as well. No intracranial mass lesion or hemorrhage, midline shift or mass effect or subdural or epidural hemat nancy is detected. Status post right mastoidectomy. The left mastoid air cells are normally developed and aerated. There is prominent patchy opacification of ethmoid air cells bilaterally and mild to moderate mucoper iosteal thickening of the sphenoid sinuses. No fracture or bone destruction of the cranial vault. IMPRESSION: No acute intracranial finding Extensive patchy opacification of ethmoid air cells bilaterally, new since 11/12/2022, in addition to n ew mild to moderate mucosal periosteal thickening of the sphenoid sinuses Status post right mastoidectomy Reviewed, dictated and finalized at [facility] Reviewed, dictated and finalized at [facility]. LAR ALARM INSPECTOR IMPRESSION: No acute intracranial finding Extensive patchy opacification of ethmoid air cells bilaterally, new since 2022, in addition to new mild to moderate mucosal periosteal thickening of the sphenoid sinuses Status post right mastoidectomy
--- NOTE | ~2023-05-31 | XR_ITS ---
EXAMINATION: XR chest 1V portable 05/31/2023 16:55 INDICATION: Weakness. PROCEDURE: AP portable chest COMPARISON: Comparison to multiple prior studies sequentially, with oldest reviewed study dated 10/2021. FINDINGS: The lungs are clear. Mild cardiomegaly. There are no pleural effusions. There is no pneumo thorax suspected. IMPRESSION: 1: NO ACUTE CARDIOPULMONARY DISEASE. Reviewed, dictated and finalized at [facility]. ING INSPECTOR
[2023-05-31 18:57] LABS: Basophils Percent Auto 0.4 % (0.2-1.2); Eosinophils Absolute Auto 0.1 K/mm3 (0-0.3); Eosinophils Percent Auto 0.8 % (0-4.4); Hematocrit 47.9 % (37.0-47.0); Hemoglobin 15.2 g/dL (12.0-15.0); Immature Granulocyte Absolute 0.21 K/mm3 (0.00-0.031); Immature Granulocyte Percent A 2.1 % (0-0.5); Lymphocytes Absolute Auto 0.67 K/mm3 (0.9-3.2); Lymphocytes Percent Auto 6.6 % (18.3-44.2); Mean Corpuscular HGB Conc 31.7 g/dl (32-36); Mean Corpuscular Hemoglobin 30.9 pg (26-34); Mean Corpuscular Volume 97.4 fl (80-100); Mean Platelet Volume 10.7 fl (7.4-10.4); Monocytes Absolute Auto 0.8 K/mm3 (0.1-0.6); Monocytes Percent Auto 7.4 % (2.6-8.5); Neutrophils Absolute Auto 8.4 K/mm3 (1.3-6.7); Neutrophils Percent Auto 82.7 % (45.5-73.1); Platelet Count Result 153 k/mm3 (150-375); Red Blood Count 4.92 M/mm3 (4.2-5.4); Red Cell Distribution Width 12.6 % (11.5-14.5); White Blood Count 10.2 K/mm3 (4.5-10.0)
[2023-05-31 19:11] LABS: Alanine Aminotransferase 49 U/L (6-35); Alkaline Phosphatase 54 U/L (38-126); Anion Gap 6 mmol/L (8-16); Aspartate Amino Transferase 27 U/L (14-36); Bilirubin,Total 1.7 mg/dL (0.2-1.3); Blood Urea Nitrogen 20 mg/dL (7-17); Calcium 8.5 mg/dL (8.4-10.2); Carbon Dioxide 30 mmol/L (22-30); Chloride 101 mmol/L (98-107); Estimated CRCL calculation 44 ml/min; Estimated Glomerular Filt Rate > 60; Glucose 86 mg/dL (65-110); Potassium 4.2 mmol/L (3.4-5.0); Sodium 137 mmol/L (137-145)
--- NOTE | 2023-05-31 19:27 | ED.GENADULT ---
HPI - General Adult General Chief complaint: Weakness Stated complaint: Unspecified Time Seen by Provider: 05/31/23 19:26 History of Present Illness HPI narrative: Patient is an 82-year-old female who presents emergency department this if evening completed by her daughter due to generalized weakness. Daughter provides the majority of the history of present illness as patient has stage 6 dementia. Daughter states that approximately 10 days ago patient had an upper respiratory infection / bronchitis and was prescribed a Z-Anthony and steroids by her primary care physician which she has finished. Daughter states that she started to feel much better, however throughout the past few days she started to feel sick again. Daughter states that she has not had an appetite and has been refusing to take any oral fluids. Secondary to this, daughter states the patient's urine output has significantly decreased. Patient normally ambulates using a walker, and daughter states that she has been too weak to move. The remainder of the history of present illness and review of systems limited secondary to patient's dementia. Related Data Home Medications Medication Instructions Recorded Confirmed acetaminophen 325 mg tablet 650 mg PO BID 08/16/21 02/11/23 (Tylenol) Benefiber (guar gum) 1 tab-cap PO BID PRN Constipation 10/27/22 02/11/23 OneBreath 1 tab-cap PO DAILY PRN diahrea 10/27/22 02/11/23 Allergies Allergy/AdvReac Type Severity Reaction Status Date / Time meperidine [From Demerol] Allergy Vomiting Verified 05/31/23 15:24 cefdinir AdvReac Severe Diarrhea Verified 05/31/23 15:24 Penicillins AdvReac Rash Verified 05/31/23 15:24 Review of Systems Review of Systems: Unable to obtain a full review of system from the patient, however, a review of systems was reviewed with the patient's daughter and is negative unless stated otherwise in HPI. [facility] Past Medical History Medical History Alzheimer's dementia Anticoagulation adequate Atrial fibrillation with normal ventricular rate Breast CA Mitral regurgitation Right acoustic neuroma Venous insufficiency (chronic) (peripheral) Surgical History Surgical History Hx of craniotomy Family History Family History Other Unknown family medical history Social History Social History Social History: Smoking packs per day: 1 Smoking cigarettes per day: 20.0 Years smoked: 25 Smoking pack-years: 25.00 Smoking status: Former smoker Second hand tobacco smoke exposure: No Alcohol intake: never Substance use: never Substance use type: does not use Lack of Transportation: No Lack of Food: Never True Current Housing: I Have Housing Concerned About Future Housing: No Difficulty Paying Gas/Electric Bills: No Difficulty Paying for Meds: No Currently Unemployed: No Education: Trade/Vocational Certificate Difficulty w/ Childcare or Family Care: No Living arrangements: with family Occupation/Education: retired Gender identity (if verbalized by the patient): Female Sexual Orientation (if Verbalized by the Patient): Straight or Heterosexual Spiritual care concerns: No Exam Narrative: General: Asleep, afebrile, in no acute distress. HEENT: PERRL, no rhinorrhea, no post nasal drip, oropharynx clear, dry mucous membranes. Neck: Trachea midline, no JVD, no lymphadenopathy. Cardiovascular: Regular rate and rhythm, no murmurs, rubs or gallops, no peripheral edema. Respiratory: Clear to auscultation bilaterally, no tachypnea, no wheezing, no rhonchi, no rubs, no respiratory distress. Abdomen: Soft, nontender, nondistended, no rebound, no guarding, no peritoneal signs. Musculoskeletal: No joint swelling or defor
[2023-05-31 19:34] LABS: Influenza A QL RT-PCR Negative (Negative); Influenza B QL RT-PCR Negative (Negative); RSV RNA, RT-PCR Negative (Negative); SARS-CoV-2 RNA PCR Positive (Negative)
--- NOTE | 2023-05-31 19:40 | PC.NURSE ---
Report received from LUC Garcia. Assumed care of patient at this time.
[2023-05-31 20:26] LABS: Magnesium 2.1 mg/dL (1.6-2.3)
[2023-05-31] MEDS: SODIUM CHLORIDE 0.9% IV 1,000 ML 500 ML IV CONT (20:56)
[2023-05-31 22:42] LABS: Appearance Urine Clear (Clear); Bacteria Urine 2+ /hpf; Bilirubin Urine Negative (Negative); Blood Urine Negative (Negative); Color Urine Yellow (Yellow); Glucose Urine UA Negative (Negative); Ketones Urine Trace mg/dL (Negative); Leukocyte Esterase Ur 1+ LEU/UL (Negative); Need Manual Microscopic Reviewed; Nitrate Urine Positive (Negative); Non Pathogenic Casts 0-2; Protein Urine Negative (Negative); RBC Urine 0-2 /hpf (0-2); Specific Grav Ur 1.017 (1.001-1.035); Squamous Epithelial Cell Urine None seen /hpf (Few); WBC Urine 0-5 /hpf; pH Urine 6.5 (5.0-9.0)
[2023-05-31 22:45] LABS: Add Urine Microscopic? YES
--- NOTE | 2023-05-31 23:09 | PC.NURSE ---
Patient uncooperative with repeat BP.
--- NOTE | 2023-05-31 23:24 | PM.IMHP ---
H&P: HPI History of Present Illness Date/Time: 05/31/23 23:24 Chief Complaint: GENERALIZED WEAKNESS Narrative: THIS IS AN 82-YEAR-OLD FEMALE WITH PAST MEDICAL HISTORY SIGNIFICANT FOR DEMENTIA, ATRIAL FIBRILLATION, RATE CONTROLLED ANTICOAGULATED. PATIENT TESTED POSITIVE FOR COVID ROUGHLY 10 DAYS AGO HOWEVER SHE HAD 3 DAYS OF RUNNY NOSE AND COUGH WHICH SUBSIDED EVENTUALLY PATIENT HAD CHEST CONGESTION WITH COUGH AND BECAME WEAK WAS NOT PARTICIPATING IN HER DAILY ACTIVITIES WAS STAYING IN BED HAVING DIARRHEA AND NO URINE, POOR PER ORALLY INTAKE, POOR APPETITE. HISTORY HAS BEEN OBTAINED FROM DAUGHTER WHO IS AT BEDSIDE PATIENT IS OBTUNDED, LETHARGIC UNABLE TO GIVE ANY MEANINGFUL HISTORY. PRELIMINARY WORKUP WAS SIGNIFICANT FOR POSITIVE COVID EXAMINATION: XR chest 1V portable 05/31/2023 16:55 INDICATION: Weakness. PROCEDURE:? AP portable chest COMPARISON: Comparison to multiple prior studies sequentially, with oldest reviewed study dated? 03/13/2022. FINDINGS: The lungs are clear. Mild cardiomegaly. There are no pleural effusions.? There is no pneumothorax suspected.? IMPRESSION: 1:? NO ACUTE CARDIOPULMONARY DISEASE. Review of Systems Review of Systems: ROS unobtainable: Yes unobtainable due to mental status PMFSH Past Medical History Medical History Alzheimer's dementia Anticoagulation adequate Atrial fibrillation with normal ventricular rate Breast CA Mitral regurgitation Right acoustic neuroma Venous insufficiency (chronic) (peripheral) Surgical History Surgical History Hx of craniotomy Family History Family History Other Unknown family medical history Social History Social History Social History: Smoking packs per day: 2 Smoking cigarettes per day: 40.0 Years smoked: 25 Smoking pack-years: 50.00 Smoking status: Former smoker Tobacco type: cigarettes Second hand tobacco smoke exposure: No Alcohol intake: never Substance use: never Substance use type: does not use Lack of Transportation: No Lack of Food: Never True Current Housing: I Have Housing Concerned About Future Housing: No Difficulty Paying Gas/Electric Bills: No Difficulty Paying for Meds: No Currently Unemployed: No Education: Trade/Vocational Certificate Difficulty w/ Childcare or Family Care: No Living arrangements: with family Occupation/Education: retired Gender identity (if verbalized by the patient): Female Sexual Orientation (if Verbalized by the Patient): Straight or Heterosexual Spiritual care concerns: No Meds Home Medications and Allergies Home Medications Medication Instructions Recorded Confirmed Type acetaminophen 325 mg tablet 650 mg PO BID 08/16/21 06/01/23 History (Tylenol) Benefiber (guar gum) 1 tab-cap PO BID PRN Constipation 10/27/22 06/01/23 History [facility] 1 tab-cap PO EVERY OTHER DAY 10/27/22 06/01/23 History diahrea memantine 10 mg tablet See Rx Instructions .Route 01/23/23 06/01/23 Rx .COMPLEX #60 tabs rosuvastatin 5 mg tablet 5 mg PO HS #100 tabs 03/03/23 06/01/23 Rx apixaban 5 mg tablet (Eliquis) See Rx Instructions .Route 03/07/23 06/01/23 Rx .COMPLEX #60 tabs sertraline 25 mg tablet See Rx Instructions .Route 03/11/23 06/01/23 Rx .COMPLEX #90 tabs metoprolol tartrate 25 mg tablet See Rx Instructions .Route 05/22/23 06/01/23 Rx .COMPLEX #60 tabs Allergies Allergy/AdvReac Type Severity Reaction Status Date / Time meperidine [From Demerol] Allergy Vomiting Verified 05/31/23 15:24 cefdinir AdvReac Severe Diarrhea Verified 05/31/23 15:24 Penicillins AdvReac Rash Verified 05/31/23 15:24 Vital Signs Vital Signs - 24 hr 05/31/23 15:05 05/31/23 15:05 05/31/23 15:16 Temperature
[2023-05-31] MEDS: levoFLOXacin 750 MG/D5W 150 ML 750 MG/150 ML BAG 100 MG IVPB (23:45)
[2023-05-31 23:54] LABS: Lactic Acid Reflex 1.1 mmol/L (0.7-2.0)
[2023-06-01] VITALS (14 sets, daily range): BP systolic 102–132; BP diastolic 75–88; PULSE 67–133; RESP 14–25; TEMP 36.4–36.7; O2SAT 93–99; BMI 24.9
--- NOTE | 2023-06-01 00:59 | PC.NURSE ---
Patients daughter states patient started to have Covid symptoms on 05/18/23 when patients sister tested positive at home. Per patients daughter at bedside, patient shares a room with her sister who tested positive on 05/18/23 so she assumed patient was positive as well. ERP, glycerin supervisor and director nicu notified. Per glycerin supervisor, patient is out of 10 day window and her daughter can stay with her since patient will not be isolated.
--- NOTE | 2023-06-01 01:46 | ADMGEN ---
This patient, Kalee Vo, was admitted to 2 Medical Room 256-. Patient/family oriented to hospital policies and general routines including ID bracelet, bed and alarms, visiting hours, pain management, procedures, bathroom and other care routines, personal items, smoking policy, room service/diet, and visiting hours. Information on how to activate the Rapid Response Team has been discussed. Patient/Family are encouraged to report perceived risks to care and to ask questions if they do not understand what they are told or what they should do.
[2023-06-01] MEDS: SODIUM CHLORIDE 0.9% IV 1,000 ML 100 ML IV CONT (02:25)
--- NOTE | 2023-06-01 04:31 | PC.NURSE ---
pt family member states pt takes her pills at home crushed in pudding
[2023-06-01 08:32] LABS: Basophils Percent Auto 0.3 % (0.2-1.2); Eosinophils Absolute Auto 0.1 K/mm3 (0-0.3); Eosinophils Percent Auto 0.6 % (0-4.4); Hematocrit 46.6 % (37.0-47.0); Hemoglobin 15.4 g/dL (12.0-15.0); Immature Granulocyte Absolute 0.25 K/mm3 (0.00-0.031); Mean Corpuscular Volume 96.9 fl (80-100); Mean Platelet Volume 10.5 fl (7.4-10.4); Monocytes Absolute Auto 0.8 K/mm3 (0.1-0.6); Monocytes Percent Auto 6.5 % (2.6-8.5); Neutrophils Absolute Auto 10.9 K/mm3 (1.3-6.7); Neutrophils Percent Auto 86.6 % (45.5-73.1); Platelet Count Result 146 k/mm3 (150-375); Red Blood Count 4.81 M/mm3 (4.2-5.4); Red Cell Distribution Width 12.4 % (11.5-14.5); White Blood Count 12.6 K/mm3 (4.5-10.0)
[2023-06-01 08:49] LABS: Anion Gap 6 mmol/L (8-16); Blood Urea Nitrogen 15 mg/dL (7-17); Carbon Dioxide 25 mmol/L (22-30); Chloride 105 mmol/L (98-107); Estimated CRCL calculation 48 ml/min; Estimated Glomerular Filt Rate > 60; Glucose 84 mg/dL (65-110); Potassium 3.6 mmol/L (3.4-5.0); Sodium 136 mmol/L (137-145)
[2023-06-01] MEDS: SERTRALINE HCL 25 MG TABLET PO (09:55)
[2023-06-01] MEDS: METOPROLOL TARTRATE 25 MG TABLET PO ×2 (09:56→21:42)
[2023-06-01] MEDS: MEMANTINE 10 MG TABLET PO ×2 (09:56→18:47)
[2023-06-01] MEDS: APIXABAN 5 MG TABLET PO ×2 (09:56→18:48)
--- NOTE | 2023-06-01 15:13 | PM.IMPN ---
Progress Note: A&P Assessment and Plan (1) AMS (altered mental status): Code(s): R41.82 - Altered mental status, unspecified Status: Acute Assessment and Plan: likely secondary to acute UTI positive for covid, but 10 days past CXR negative for pneumonia or acute process CT brain negative for acute process IVF, supportive care UA positive for nitrates, leuks or bacteria Levaquin for UTI until culture results BC pending (2) Dehydration: Code(s): E86.0 - Dehydration Status: Acute Assessment and Plan: IVF monitor I&O dietary consulted for poor PO intake (3) COVID-19: Code(s): U07.1 - COVID-19 Status: Acute Assessment and Plan: s/p 10 days since symptoms onset supportive care (4) Atrial fibrillation: Qualifiers: Atrial fibrillation type: permanent Qualified Code(s): I48.21 - Permanent atrial fibrillation Code(s): I48.91 - Unspecified atrial fibrillation Status: Acute Assessment and Plan: rate controlled and anticoagulated (5) Alzheimer's dementia: Qualifiers: Alzheimer's disease onset: late-onset Dementia behavioral disturbance: without behavioral disturbance Qualified Code(s): G30.1 - Alzheimer's disease with late onset; F02.80 - Dementia in other diseases classified elsewhere without behavioral disturbance Code(s): G30.9 - Alzheimer's disease, unspecified; F02.80 - Dementia in other diseases classified elsewhere, unspecified severity, without behavioral disturbance, psychotic disturbance, mood disturbance, and anxiety Status: Acute Assessment and Plan: continue memantine Subjective Date/time seen: 06/01/23 15:13 Interval history: Patient is an 82 YO female admitted due to generalized weakness. Daughter provides the majority of the history of present illness as patient has stage 6 dementia. Daughter reports that patient had an upper respiratory infection / bronchitis and was prescribed a Z-Anthony and steroids by her primary care physician which she has finished. She was covid positive, but her 10 days was up on 05/29. Daughter reported that she has not had an appetite and has been refusing to take any oral fluids. Daughter reported the patient's urine output has significantly decreased. Patient normally ambulates using a walker, but has not been able to ambulate. CXR negative for pneumonia. UA culture pending, starting on levaquin until results are final. CT brain shows no signs of acute process. BC drawn and pending. Patient looking much better and nearing her baseline per her daughter this morning on exam. She is alert. She is receiving IV fluids and did eat/drink some breakfast. Will monitor response to antibiotic, and increasing PO intake. Review of Systems Review of Systems: ROS unobtainable: Yes unobtainable due to mental status Exam Narrative: General: non-toxic appearing, in no acute distress. HEENT: PERRL, no rhinorrhea, no post nasal drip, oropharynx clear, dry mucous membranes. Neck: supple, no lymphadenopathy. Cardiovascular: RRR, no murmurs, rubs or gallops. Respiratory: Clear to auscultation bilaterally, no wheezing, no rhonchi, no rubs, no respiratory distress. Abdomen: Soft, nontender, nondistended. BS present and active. Musculoskeletal: No joint swelling or deformity. no peripheral edema. Skin: No rashes or petechia, no signs of infection. Psychiatric: severe dementia, but appropriate. friendly this am. Neurological: Severe dementia. Follows minimal commands. No focal deficits appreciated, minimal speech. Objective Data Vital Signs Vital Signs: Vital Signs - 24 hr 05/31/23 15:16 05/31/23 16:31 05/31/23 17:31 Temperature Pulse Rate 96 97 93 Respiratory Rate 16 19 18 Blood Pressure 109/82 104/71 116/97 H Pulse Oximetry 98 Oxygen Delivery 05/31/23 17:46 05/31/23 18:01 05/31/23 19:15 Temperature Pulse Rate 100 91 101 H Resp
[2023-06-01] MEDS: ROSUVASTATIN 5 MG TABLET PO (21:42)
[2023-06-02] VITALS (11 sets, daily range): BP systolic 108–128; BP diastolic 60–86; PULSE 72–120; RESP 16–20; TEMP 36.4–36.9; O2SAT 93–100
[2023-06-02 05:47] LABS: Basophils Percent Auto 0.2 % (0.2-1.2); Eosinophils Absolute Auto 0.1 K/mm3 (0-0.3); Eosinophils Percent Auto 0.7 % (0-4.4); Hematocrit 45.5 % (37.0-47.0); Hemoglobin 14.6 g/dL (12.0-15.0); Immature Granulocyte Absolute 0.15 K/mm3 (0.00-0.031); Immature Granulocyte Percent A 1.2 % (0-0.5); Lymphocytes Absolute Auto 0.66 K/mm3 (0.9-3.2); Lymphocytes Percent Auto 5.2 % (18.3-44.2); Mean Corpuscular HGB Conc 32.1 g/dl (32-36); Mean Corpuscular Hemoglobin 31.7 pg (26-34); Mean Corpuscular Volume 98.7 fl (80-100); Monocytes Absolute Auto 0.9 K/mm3 (0.1-0.6); Monocytes Percent Auto 7.4 % (2.6-8.5); Neutrophils Absolute Auto 10.9 K/mm3 (1.3-6.7); Neutrophils Percent Auto 85.3 % (45.5-73.1); Platelet Count Result 138 k/mm3 (150-375); Red Blood Count 4.61 M/mm3 (4.2-5.4); Red Cell Distribution Width 12.6 % (11.5-14.5); White Blood Count 12.7 K/mm3 (4.5-10.0)
[2023-06-02 06:04] LABS: Anion Gap 7 mmol/L (8-16); Blood Urea Nitrogen 10 mg/dL (7-17); Calcium 8.4 mg/dL (8.4-10.2); Carbon Dioxide 25 mmol/L (22-30); Chloride 102 mmol/L (98-107); Estimated CRCL calculation 48 ml/min; Estimated Glomerular Filt Rate > 60; Glucose 88 mg/dL (65-110); Potassium 3.5 mmol/L (3.4-5.0); Sodium 134 mmol/L (137-145)
[2023-06-02] MEDS: APIXABAN 5 MG TABLET PO ×2 (08:38→17:11)
[2023-06-02] MEDS: MEMANTINE 10 MG TABLET PO ×2 (08:39→17:11)
[2023-06-02] MEDS: SERTRALINE HCL 25 MG TABLET PO (08:48)
[2023-06-02] MEDS: METOPROLOL TARTRATE 25 MG TABLET PO ×2 (08:48→21:37)
[2023-06-02] MEDS: SODIUM CHLORIDE 0.9% IV 1,000 ML 100 ML IV CONT ×2 (10:56→21:30)
--- NOTE | 2023-06-02 11:52 | PM.IMPN ---
Progress Note: A&P Assessment and Plan (1) AMS (altered mental status): Code(s): R41.82 - Altered mental status, unspecified Status: Acute Assessment and Plan: likely secondary to acute UTI positive for covid, but 10 days past CXR negative for pneumonia or acute process CT brain negative for acute process IVF, supportive care UA positive for nitrates, leuks or bacteria Levaquin for UTI until culture results BC pending (2) Dehydration: Code(s): E86.0 - Dehydration Status: Acute Assessment and Plan: IVF monitor I&O dietary consulted for poor PO intake (3) COVID-19: Code(s): U07.1 - COVID-19 Status: Acute Assessment and Plan: s/p 10 days since symptoms onset supportive care Neb treatments ordered for her cough (4) Atrial fibrillation: Qualifiers: Atrial fibrillation type: permanent Qualified Code(s): I48.21 - Permanent atrial fibrillation Code(s): I48.91 - Unspecified atrial fibrillation Status: Acute Assessment and Plan: rate controlled and anticoagulated (5) Alzheimer's dementia: Qualifiers: Alzheimer's disease onset: late-onset Dementia behavioral disturbance: without behavioral disturbance Qualified Code(s): G30.1 - Alzheimer's disease with late onset; F02.80 - Dementia in other diseases classified elsewhere without behavioral disturbance Code(s): G30.9 - Alzheimer's disease, unspecified; F02.80 - Dementia in other diseases classified elsewhere, unspecified severity, without behavioral disturbance, psychotic disturbance, mood disturbance, and anxiety Status: Acute Assessment and Plan: continue memantine Subjective Date/time seen: 06/02/23 11:52 Interval history: Patient is an 82 YO female admitted due to generalized weakness. Daughter provides the majority of the history of present illness as patient has stage 6 dementia. Daughter reports that patient had an upper respiratory infection / bronchitis and was prescribed a Z-Anthony and steroids by her primary care physician which she has finished. She was covid positive, but her 10 days was up on 05/29. Daughter reported that she has not had an appetite and has been refusing to take any oral fluids. Daughter reported the patient's urine output has significantly decreased. Patient normally ambulates using a walker, but has not been able to ambulate. CXR negative for pneumonia. UA culture pending, starting on Levaquin until results are final. CT brain shows no signs of acute process. BC drawn and pending. Patient more lethargic this morning than yesterday. She is alert. No distress. Krystian will continue IV fluids until she is increasing her PO intake. Will monitor response to antibiotic, and increasing PO intake. Neb treatments ordered for productive cough as she is not able to move the phlegm on her own. Review of Systems Review of Systems: ROS unobtainable: Yes unobtainable due to mental status Exam Narrative: General: non-toxic appearing, in no acute distress. HEENT: PERRL, no rhinorrhea, no post nasal drip, oropharynx clear, dry mucous membranes. Neck: supple, no lymphadenopathy. Cardiovascular: RRR, no murmurs, rubs or gallops. Respiratory: Clear to auscultation bilaterally, no wheezing, no rhonchi, no rubs, no respiratory distress. Abdomen: Soft, nontender, nondistended. BS present and active. Musculoskeletal: No joint swelling or deformity. No peripheral edema. Skin: No rashes or petechia, no signs of infection. Psychiatric: severe dementia, but appropriate. friendly this am. Neurological: Severe dementia. Follows minimal commands. No focal deficits appreciated, minimal speech. Objective Data Vital Signs Vital Signs: Vital Signs - 24 hr 06/01/23 14:00 06/01/23 20:00 06/01/23 22:00 Temperature 98.0 F 97.7 F Pulse Rate 99 99 67 Respiratory Rate 14 14 16 Blood Pressure 109/84 126/88 Pulse Oximetry 98 98 9
[2023-06-02] MEDS: ACETAMINOPHEN 500 MG TABLET PO ×2 (13:16→21:35)
[2023-06-02] MEDS: ALBUTEROL SULFATE NEB 2.5 MG/3 ML INH INHALATION ×2 (14:21→20:59)
[2023-06-02] MEDS: ROSUVASTATIN 5 MG TABLET PO (21:38)
[2023-06-02] MEDS: levoFLOXacin 750 MG/D5W 150 ML 750 MG/150 ML BAG 100 MG IVPB (21:45)
[2023-06-03] VITALS (9 sets, daily range): BP systolic 94–154; BP diastolic 61–88; PULSE 68–108; RESP 18–20; TEMP 36.3–36.4; O2SAT 94–100
[2023-06-03] MEDS: ALBUTEROL SULFATE NEB 2.5 MG/3 ML INH INHALATION (02:45)
[2023-06-03 07:32] LABS: Basophils Percent Auto 0.2 % (0.2-1.2); Eosinophils Absolute Auto 0.1 K/mm3 (0-0.3); Eosinophils Percent Auto 0.4 % (0-4.4); Hematocrit 44.3 % (37.0-47.0); Hemoglobin 13.8 g/dL (12.0-15.0); Immature Granulocyte Absolute 0.15 K/mm3 (0.00-0.031); Immature Granulocyte Percent A 1.1 % (0-0.5); Lymphocytes Absolute Auto 0.57 K/mm3 (0.9-3.2); Lymphocytes Percent Auto 4.3 % (18.3-44.2); Mean Corpuscular HGB Conc 31.2 g/dl (32-36); Mean Corpuscular Volume 99.6 fl (80-100); Mean Platelet Volume 11.3 fl (7.4-10.4); Monocytes Absolute Auto 0.9 K/mm3 (0.1-0.6); Monocytes Percent Auto 6.3 % (2.6-8.5); Neutrophils Absolute Auto 11.7 K/mm3 (1.3-6.7); Neutrophils Percent Auto 87.7 % (45.5-73.1); Platelet Count Result 124 k/mm3 (150-375); Red Blood Count 4.45 M/mm3 (4.2-5.4); Red Cell Distribution Width 12.9 % (11.5-14.5); White Blood Count 13.4 K/mm3 (4.5-10.0)
[2023-06-03 07:39] LABS: Anion Gap 6 mmol/L (8-16); Blood Urea Nitrogen 11 mg/dL (7-17); Calcium 8.1 mg/dL (8.4-10.2); Carbon Dioxide 21 mmol/L (22-30); Chloride 106 mmol/L (98-107); Estimated CRCL calculation 48 ml/min; Estimated Glomerular Filt Rate > 60; Glucose 90 mg/dL (65-110); Potassium 3.1 mmol/L (3.4-5.0); Sodium 133 mmol/L (137-145)
[2023-06-03] MEDS: APIXABAN 5 MG TABLET PO ×2 (08:54→17:21)
[2023-06-03] MEDS: MEMANTINE 10 MG TABLET PO ×2 (08:54→17:21)
[2023-06-03] MEDS: SERTRALINE HCL 25 MG TABLET PO (08:55)
[2023-06-03] MEDS: METOPROLOL TARTRATE 25 MG TABLET PO ×2 (08:55→20:08)
[2023-06-03] MEDS: ACETAMINOPHEN 500 MG TABLET PO (08:58)
--- NOTE | 2023-06-03 09:43 | PM.DS ---
DS: Admitting Diagnosis Discharge Date 06/05/23 Admitting Diagnosis Altered mental status Dehydration COVID AFib Alzheimer's dementia DS: Discharge Diagnosis Discharge Diagnosis (1) AMS (altered mental status): Code(s): R41.82 - Altered mental status, unspecified Status: Acute (2) Dehydration: Code(s): E86.0 - Dehydration Status: Acute (3) COVID-19: Code(s): U07.1 - COVID-19 Status: Acute (4) Atrial fibrillation: Qualifiers: Atrial fibrillation type: permanent Qualified Code(s): I48.21 - Permanent atrial fibrillation Code(s): I48.91 - Unspecified atrial fibrillation Status: Acute (5) Alzheimer's dementia: Qualifiers: Alzheimer's disease onset: late-onset Dementia behavioral disturbance: without behavioral disturbance Qualified Code(s): G30.1 - Alzheimer's disease with late onset; F02.80 - Dementia in other diseases classified elsewhere without behavioral disturbance Code(s): G30.9 - Alzheimer's disease, unspecified; F02.80 - Dementia in other diseases classified elsewhere, unspecified severity, without behavioral disturbance, psychotic disturbance, mood disturbance, and anxiety Status: Acute DS: Summary Hospital Course Reason for hospitalization: Altered mental status Dehydration Hospital Course: This is an 82-year-old female who presented to the hospital on 05/31/2023 for evaluation of generalized weakness. Patient tested positive for COVID on 05/18/23. She had a cough and chest congestion a few days after which made her very weak and unable to participate in her ADLs. She also had poor intake. When she arrived to the hospital patient was lethargic and obtunded. Workup in the hospital included a chest x-ray which showed no acute cardiopulmonary disease. She also had a head CT which showed extensive patchy opacification of ethmoid air cells bilaterally new since 11/12/2022, in addition to new mild to moderate mucosal periosteal thickening of the sphenoid sinus. UA was also completed which shown trace ketones, positive nitrates, 1+ leukocytes, 2+ bacteria. Patient was started on Rocephin. Blood and urine cultures were obtained. On examination today patient wakes to voice and oriented x1. She drifts off to sleep quickly. Daughter is at the bedside who said that the patient did not get a good night's rest as she was interrupted a few times by nursing staff. Daughter did did say that the patient is eating a little bit and drinking fluids again which is an improvement. Urine cultures are negative on the final read, blood cultures are showing no growth day 3. Levaquin and IV fluids were discontinued. Labs today are essentially normal. Vital signs are stable, patient is on room air, patient is afebrile. She is stable for discharge at this time to SNF. Final diagnosis: Dehydration, altered mental status, Alzheimer's dementia Status at Discharge Cognitive/behavioral status at discharge: Alert to voice, oriented x1 Functional status at discharge: uses cane/walker Overall status at discharge: patient is progressing back to baseline Time Spent with Patient Time attestation: Total time spent providing and/or coordinating discharge services: Time spent: Greater than 30 minutes Exam Narrative: General: In no acute distress, well nourished Head: atraumatic, no encephalopathy Eyes: EOMI, PERRLA, sclera clear ENT: moist mucous membranes, nasal passages clear Neck: supple, no JVD, no adenopathy, trachea midline Cardiac: Normal S1 and S2. No murmur, gallops or friction rubs, peripheral pulses intact. Respiratory: Lungs clear to auscultation, no adventitious lung sounds Gastrointestinal: soft, non-distended, non-tender, normoactive bowel sounds. : voiding without difficulty. Extremities: moves all extremities well, no edema, good ROM Skin: clean, dry, intact. No wounds or lesions. Neuro: Alert to voice, oriented x1, cranial nerves intact,
--- NOTE | 2023-06-03 11:57 | PCPTNOTE ---
Attempted to see patient for PT, patient initially agreeable to working with therapy then refused to participate with any activities. Attempted supine to sit and LE exercises, patient refused participation with any activity. Patient's daughter in room for encouragement, patient continued to refuse. Assisted with scooting patient up in bed.
[2023-06-03] MEDS: POTASSIUM CHLORIDE 20 MEQ PACKET (FOR LIQUID) 40 MEQ PO (12:03)
--- NOTE | 2023-06-03 15:38 | PCPTNOTE ---
Attempted to see patient for PT, however patient refused to participate.
--- NOTE | 2023-06-03 17:00 | P.PNIM_ITS ---
Progress Note: A&P Assessment and Plan (1) AMS (altered mental status): Code(s): R41.82 - Altered mental status, unspecified Status: Acute Assessment and Plan: 06/02/23:(copied from chart) * likely secondary to acute UTI * positive for covid, but 10 days past * CXR negative for pneumonia or acute process * CT brain negative for acute process * IVF, supportive care * UA positive for nitrates, leuks or bacteria * Levaquin for UTI until culture results * BC pending 06/03/23: * Patient obtunded today, she will open her eyes to voice and then drifts right back off to sleep with very little interaction. Daughter states that patient did not sleep very well through the night. We will reassess this in the morning * Continue IV fluids and supportive care * Urine culture showing no growth * Levaquin discontinued * Blood cultures are showing no growth day 1 on preliminary (2) Dehydration: Code(s): E86.0 - Dehydration Status: Acute Assessment and Plan: 06/02/23:(copied from chart) * IVF * monitor I&O * dietary consulted for poor PO intake 06/03/23: * Continue IV fluids as patient is more confused today and not interacting as well as yesterday * Sodium 133, chloride 106 * Dietary intake is very poor (3) COVID-19: Code(s): U07.1 - COVID-19 Status: Acute Assessment and Plan: 06/02/23:(copied from chart) * s/p 10 days since symptoms onset * supportive care * Neb treatments ordered for her cough 06/03/23: * No change to current treatment plan * Patient currently on room air (4) Atrial fibrillation: Qualifiers: Atrial fibrillation type: permanent Qualified Code(s): I48.21 - Permanent atrial fibrillation Code(s): I48.91 - Unspecified atrial fibrillation Status: Acute Assessment and Plan: 06/02/23:(copied from chart) * rate controlled and anticoagulated 06/03/23: * No change to current treatment plan (5) Alzheimer's dementia: Qualifiers: Alzheimer's disease onset: late-onset Dementia behavioral disturbance: without behavioral disturbance Qualified Code(s): G30.1 - Alzheimer's disease with late onset; F02.80 - Dementia in other diseases classified elsewhere without behavioral disturbance Code(s): G30.9 - Alzheimer's disease, unspecified; F02.80 - Dementia in other diseases classified elsewhere, unspecified severity, without behavioral disturbance, psychotic disturbance, mood disturbance, and anxiety Status: Acute Assessment and Plan: 06/02/23:(copied from chart) * continue memantine 06/03/23: * No change to current treatment plan Time Spent With Patient Time with patient: Greater than 35 minutes Subjective Date/time seen: 06/03/23 17:00 Interval history: This is an 82-year-old female who presented to the hospital on 05/31/2023 for evaluation of generalized weakness.? Patient tested positive for COVID on 05/18/23.? She had a cough and chest congestion a few days after which made her very weak and unable to participate in her ADLs.? She also had poor intake.? When she arrived to the hospital patient was lethargic and obtunded.? Workup in the hospital included a chest x-ray which showed no acute cardiopulmonary disease.? She also had a head CT which showed extensive patchy opacification of ethmoid air cells bilaterally new since 11/12/2022, in addition to new mild to moderate mucosal periosteal thickening of the sphenoid sinus.? UA was also completed which shown trace ketones, positive nitrates, 1+ leukocytes, 2
--- NOTE | 2023-06-03 17:00 | PM.IMPN ---
Progress Note: A&P Assessment and Plan (1) AMS (altered mental status): Code(s): R41.82 - Altered mental status, unspecified Status: Acute Assessment and Plan: 06/02/23:(copied from chart) likely secondary to acute UTI positive for covid, but 10 days past CXR negative for pneumonia or acute process CT brain negative for acute process IVF, supportive care UA positive for nitrates, leuks or bacteria Levaquin for UTI until culture results BC pending 06/03/23: Patient obtunded today, she will open her eyes to voice and then drifts right back off to sleep with very little interaction. Daughter states that patient did not sleep very well through the night. We will reassess this in the morning Continue IV fluids and supportive care Urine culture showing no growth Levaquin discontinued Blood cultures are showing no growth day 1 on preliminary (2) Dehydration: Code(s): E86.0 - Dehydration Status: Acute Assessment and Plan: 06/02/23:(copied from chart) IVF monitor I&O dietary consulted for poor PO intake 06/03/23: Continue IV fluids as patient is more confused today and not interacting as well as yesterday Sodium 133, chloride 106 Dietary intake is very poor (3) COVID-19: Code(s): U07.1 - COVID-19 Status: Acute Assessment and Plan: 06/02/23:(copied from chart) s/p 10 days since symptoms onset supportive care Neb treatments ordered for her cough 06/03/23: No change to current treatment plan Patient currently on room air (4) Atrial fibrillation: Qualifiers: Atrial fibrillation type: permanent Qualified Code(s): I48.21 - Permanent atrial fibrillation Code(s): I48.91 - Unspecified atrial fibrillation Status: Acute Assessment and Plan: 06/02/23:(copied from chart) rate controlled and anticoagulated 06/03/23: No change to current treatment plan (5) Alzheimer's dementia: Qualifiers: Alzheimer's disease onset: late-onset Dementia behavioral disturbance: without behavioral disturbance Qualified Code(s): G30.1 - Alzheimer's disease with late onset; F02.80 - Dementia in other diseases classified elsewhere without behavioral disturbance Code(s): G30.9 - Alzheimer's disease, unspecified; F02.80 - Dementia in other diseases classified elsewhere, unspecified severity, without behavioral disturbance, psychotic disturbance, mood disturbance, and anxiety Status: Acute Assessment and Plan: 06/02/23:(copied from chart) continue memantine 06/03/23: No change to current treatment plan Time Spent With Patient Time with patient: Greater than 35 minutes Subjective Date/time seen: 06/03/23 17:00 Interval history: This is an 82-year-old female who presented to the hospital on 05/31/2023 for evaluation of generalized weakness.? Patient tested positive for COVID on 05/18/23.? She had a cough and chest congestion a few days after which made her very weak and unable to participate in her ADLs.? She also had poor intake.? When she arrived to the hospital patient was lethargic and obtunded.? Workup in the hospital included a chest x-ray which showed no acute cardiopulmonary disease.? She also had a head CT which showed extensive patchy opacification of ethmoid air cells bilaterally new since 11/12/2022, in addition to new mild to moderate mucosal periosteal thickening of the sphenoid sinus.? UA was also completed which shown trace ketones, positive nitrates, 1+ leukocytes, 2+ bacteria.? Patient was started on Rocephin.? Blood and urine cultures were obtained.? On examination today patient wakes to voice and oriented x1.? She drifts off to sleep quickly.? Daughter is at the bedside who said that the patient did not get a good night's rest as she was interrupted a few times by nursing staff.? Daughter did did say that the patient is eating a little bit and drinking fluids again which is an improvem
[2023-06-03] MEDS: SODIUM CHLORIDE 0.9% IV 1,000 ML 100 ML IV CONT (18:45)
[2023-06-03] MEDS: ROSUVASTATIN 5 MG TABLET PO (20:08)
[2023-06-04 03:56] VITALS: BP 108/77; PULSE 89; RESP 18; TEMP 36.1; O2SAT 100
[2023-06-04] MEDS: SODIUM CHLORIDE 0.9% IV 1,000 ML 100 ML IV CONT (05:50)
[2023-06-04 08:13] LABS: Basophils Absolute Auto 0.1 K/mm3 (0.0-0.1); Basophils Percent Auto 0.7 % (0.2-1.2); Eosinophils Absolute Auto 0.1 K/mm3 (0-0.3); Eosinophils Percent Auto 0.6 % (0-4.4); Hemoglobin 13.4 g/dL (12.0-15.0); Immature Granulocyte Absolute 0.07 K/mm3 (0.00-0.031); Immature Granulocyte Percent A 0.7 % (0-0.5); Lymphocytes Absolute Auto 0.65 K/mm3 (0.9-3.2); Lymphocytes Percent Auto 6.9 % (18.3-44.2); Mean Corpuscular HGB Conc 28.5 g/dl (32-36); Mean Corpuscular Volume 112.2 fl (80-100); Mean Platelet Volume 11.4 fl (7.4-10.4); Monocytes Absolute Auto 0.6 K/mm3 (0.1-0.6); Monocytes Percent Auto 5.9 % (2.6-8.5); Neutrophils Percent Auto 85.2 % (45.5-73.1); Platelet Count Result 94 k/mm3 (150-375); Red Blood Count 4.19 M/mm3 (4.2-5.4); Red Cell Distribution Width 13.2 % (11.5-14.5); White Blood Count 9.4 K/mm3 (4.5-10.0)
[2023-06-04 08:32] LABS: Alanine Aminotransferase 23 U/L (6-35); Albumin Level 2.3 g/dL (3.5-5.1); Alkaline Phosphatase 58 U/L (38-126); Anion Gap 5 mmol/L (8-16); Aspartate Amino Transferase 21 U/L (14-36); Blood Urea Nitrogen 9 mg/dL (7-17); Calcium 8.1 mg/dL (8.4-10.2); Carbon Dioxide 19 mmol/L (22-30); Chloride 109 mmol/L (98-107); Estimated CRCL calculation 56 ml/min; Estimated Glomerular Filt Rate > 60; Glucose 89 mg/dL (65-110); Potassium 3.9 mmol/L (3.4-5.0); Sodium 133 mmol/L (137-145)
[2023-06-04 10:27] VITALS: BP 96/59; PULSE 135; O2SAT 98
[2023-06-04 10:34] VITALS: PULSE 135
[2023-06-04] MEDS: METOPROLOL TARTRATE 25 MG TABLET PO ×2 (10:34→20:48)
[2023-06-04] MEDS: APIXABAN 5 MG TABLET PO ×2 (10:35→17:47)
[2023-06-04] MEDS: SERTRALINE HCL 25 MG TABLET PO (10:35)
[2023-06-04] MEDS: MEMANTINE 10 MG TABLET PO ×2 (10:35→17:48)
--- NOTE | 2023-06-04 13:30 | P.PNIM_ITS ---
Progress Note: A&P Assessment and Plan (1) AMS (altered mental status): Code(s): R41.82 - Altered mental status, unspecified Status: Acute Assessment and Plan: 06/02/23:(copied from chart) * likely secondary to acute UTI * positive for covid, but 10 days past * CXR negative for pneumonia or acute process * CT brain negative for acute process * IVF, supportive care * UA positive for nitrates, leuks or bacteria * Levaquin for UTI until culture results * BC pending 06/03/23: * Patient obtunded today, she will open her eyes to voice and then drifts right back off to sleep with very little interaction. Daughter states that patient did not sleep very well through the night. We will reassess this in the morning * Continue IV fluids and supportive care * Urine culture showing no growth * Levaquin discontinued * Blood cultures are showing no growth day 1 on preliminary 06/04/23: * Patient alert to voice and oriented times once, baseline dementia * DC IV fluids today * Blood cultures still showing no growth on preliminary (2) Dehydration: Code(s): E86.0 - Dehydration Status: Acute Assessment and Plan: 06/02/23:(copied from chart) * IVF * monitor I&O * dietary consulted for poor PO intake 06/03/23: * Continue IV fluids as patient is more confused today and not interacting as well as yesterday * Sodium 133, chloride 106 * Dietary intake is very poor 06/04/23: * DC IV fluids today * Sodium 133, chloride 109 * Dietary intake is better today * Monitor I&O (3) COVID-19: Code(s): U07.1 - COVID-19 Status: Acute Assessment and Plan: 06/02/23:(copied from chart) * s/p 10 days since symptoms onset * supportive care * Neb treatments ordered for her cough 06/03/23: * No change to current treatment plan * Patient currently on room air 06/04/23: * No change to current treatment plan (4) Atrial fibrillation: Qualifiers: Atrial fibrillation type: permanent Qualified Code(s): I48.21 - Permanent atrial fibrillation Code(s): I48.91 - Unspecified atrial fibrillation Status: Acute Assessment and Plan: 06/02/23:(copied from chart) * rate controlled and anticoagulated 06/03/23: * No change to current treatment plan (5) Alzheimer's dementia: Qualifiers: Alzheimer's disease onset: late-onset Dementia behavioral disturbance: without behavioral disturbance Qualified Code(s): G30.1 - Alzheimer's disease with late onset; F02.80 - Dementia in other diseases classified elsewhere without behavioral disturbance Code(s): G30.9 - Alzheimer's disease, unspecified; F02.80 - Dementia in other diseases classified elsewhere, unspecified severity, without behavioral disturbance, psychotic disturbance, mood disturbance, and anxiety Status: Acute Assessment and Plan: 06/02/23:(copied from chart) * continue memantine 06/03/23: * No change to current treatment plan Time Spent With Patient Time with patient: Greater than 35 minutes Subjective Date/time seen: 06/04/23 13:30 Interval history: 06/03/23 This is an 82-year-old female who presented to the hospital on 05/31/2023 for evaluation of generalized weakness.? Patient tested positive for COVID on 05/18/23.? She had a cough and chest congestion a few days after which made her very weak and unable to participate in her ADLs.? She also had poor intake.? When she arrived to the hospital patient was lethargic and obtunded.? Workup in t
--- NOTE | 2023-06-04 13:30 | PM.IMPN ---
Progress Note: A&P Assessment and Plan (1) AMS (altered mental status): Code(s): R41.82 - Altered mental status, unspecified Status: Acute Assessment and Plan: 06/02/23:(copied from chart) likely secondary to acute UTI positive for covid, but 10 days past CXR negative for pneumonia or acute process CT brain negative for acute process IVF, supportive care UA positive for nitrates, leuks or bacteria Levaquin for UTI until culture results BC pending 06/03/23: Patient obtunded today, she will open her eyes to voice and then drifts right back off to sleep with very little interaction. Daughter states that patient did not sleep very well through the night. We will reassess this in the morning Continue IV fluids and supportive care Urine culture showing no growth Levaquin discontinued Blood cultures are showing no growth day 1 on preliminary 06/04/23: Patient alert to voice and oriented times once, baseline dementia DC IV fluids today Blood cultures still showing no growth on preliminary (2) Dehydration: Code(s): E86.0 - Dehydration Status: Acute Assessment and Plan: 06/02/23:(copied from chart) IVF monitor I&O dietary consulted for poor PO intake 06/03/23: Continue IV fluids as patient is more confused today and not interacting as well as yesterday Sodium 133, chloride 106 Dietary intake is very poor 06/04/23: DC IV fluids today Sodium 133, chloride 109 Dietary intake is better today Monitor I&O (3) COVID-19: Code(s): U07.1 - COVID-19 Status: Acute Assessment and Plan: 06/02/23:(copied from chart) s/p 10 days since symptoms onset supportive care Neb treatments ordered for her cough 06/03/23: No change to current treatment plan Patient currently on room air 06/04/23: No change to current treatment plan (4) Atrial fibrillation: Qualifiers: Atrial fibrillation type: permanent Qualified Code(s): I48.21 - Permanent atrial fibrillation Code(s): I48.91 - Unspecified atrial fibrillation Status: Acute Assessment and Plan: 06/02/23:(copied from chart) rate controlled and anticoagulated 06/03/23: No change to current treatment plan (5) Alzheimer's dementia: Qualifiers: Alzheimer's disease onset: late-onset Dementia behavioral disturbance: without behavioral disturbance Qualified Code(s): G30.1 - Alzheimer's disease with late onset; F02.80 - Dementia in other diseases classified elsewhere without behavioral disturbance Code(s): G30.9 - Alzheimer's disease, unspecified; F02.80 - Dementia in other diseases classified elsewhere, unspecified severity, without behavioral disturbance, psychotic disturbance, mood disturbance, and anxiety Status: Acute Assessment and Plan: 06/02/23:(copied from chart) continue memantine 06/03/23: No change to current treatment plan Time Spent With Patient Time with patient: Greater than 35 minutes Subjective Date/time seen: 06/04/23 13:30 Interval history: 06/03/23 This is an 82-year-old female who presented to the hospital on 05/31/2023 for evaluation of generalized weakness.? Patient tested positive for COVID on 05/18/23.? She had a cough and chest congestion a few days after which made her very weak and unable to participate in her ADLs.? She also had poor intake.? When she arrived to the hospital patient was lethargic and obtunded.? Workup in the hospital included a chest x-ray which showed no acute cardiopulmonary disease.? She also had a head CT which showed extensive patchy opacification of ethmoid air cells bilaterally new since 11/12/2022, in addition to new mild to moderate mucosal periosteal thickening of the sphenoid sinus.? UA was also completed which shown trace ketones, positive nitrates, 1+ leukocytes, 2+ bacteria.? Patient was started on Rocephin.? Blood and urine cultures were obtained.? On examination to
[2023-06-04 14:00] VITALS: BP 75/58; PULSE 109; RESP 14; TEMP 36.7; O2SAT 98
[2023-06-04] MEDS: polyethylene glycoL 3350 17 GM POWD.PACK PO (17:47)
[2023-06-04] MEDS: ACETAMINOPHEN 500 MG TABLET PO (17:48)
[2023-06-04 20:34] VITALS: BP 103/58; PULSE 104; RESP 18; TEMP 36.5; O2SAT 98
[2023-06-04 20:48] VITALS: PULSE 104
[2023-06-04] MEDS: ROSUVASTATIN 5 MG TABLET PO (20:48)
[2023-06-05 04:19] VITALS: BP 104/74; PULSE 114; RESP 18; TEMP 36.6; O2SAT 96
[2023-06-05 06:03] LABS: Basophils Percent Auto 0.4 % (0.2-1.2); Eosinophils Absolute Auto 0.1 K/mm3 (0-0.3); Eosinophils Percent Auto 0.7 % (0-4.4); Hematocrit 44.8 % (37.0-47.0); Hemoglobin 14.1 g/dL (12.0-15.0); Immature Granulocyte Absolute 0.08 K/mm3 (0.00-0.031); Immature Granulocyte Percent A 0.8 % (0-0.5); Immature Platelet Fraction Pct 7.2 % (0.9-11.2); Lymphocytes Absolute Auto 0.79 K/mm3 (0.9-3.2); Lymphocytes Percent Auto 8.1 % (18.3-44.2); Mean Corpuscular HGB Conc 31.5 g/dl (32-36); Mean Corpuscular Hemoglobin 31.5 pg (26-34); Mean Platelet Volume 11.4 fl (7.4-10.4); Monocytes Absolute Auto 0.6 K/mm3 (0.1-0.6); Monocytes Percent Auto 5.8 % (2.6-8.5); Neutrophils Absolute Auto 8.2 K/mm3 (1.3-6.7); Neutrophils Percent Auto 84.2 % (45.5-73.1); Platelet Count Result 99 k/mm3 (150-375); Red Blood Count 4.48 M/mm3 (4.2-5.4); Red Cell Distribution Width 13.1 % (11.5-14.5); White Blood Count 9.7 K/mm3 (4.5-10.0)
[2023-06-05 06:19] LABS: Alanine Aminotransferase 25 U/L (6-35); Albumin Level 2.8 g/dL (3.5-5.1); Alkaline Phosphatase 69 U/L (38-126); Anion Gap 3 mmol/L (8-16); Aspartate Amino Transferase 22 U/L (14-36); Bilirubin,Total 1.2 mg/dL (0.2-1.3); Blood Urea Nitrogen 10 mg/dL (7-17); Calcium 8.5 mg/dL (8.4-10.2); Carbon Dioxide 23 mmol/L (22-30); Chloride 107 mmol/L (98-107); Estimated CRCL calculation 48 ml/min; Estimated Glomerular Filt Rate > 60; Glucose 91 mg/dL (65-110); Potassium 3.6 mmol/L (3.4-5.0); Sodium 133 mmol/L (137-145)
[2023-06-05] MEDS: ACETAMINOPHEN 500 MG TABLET PO (09:36)
[2023-06-05 09:37] VITALS: PULSE 115
[2023-06-05] MEDS: APIXABAN 5 MG TABLET PO (09:37)
[2023-06-05] MEDS: SERTRALINE HCL 25 MG TABLET PO (09:37)
[2023-06-05] MEDS: MEMANTINE 10 MG TABLET PO (09:37)
[2023-06-05] MEDS: METOPROLOL TARTRATE 25 MG TABLET PO (09:37)
== END 2023-06-05 15:02 | DRG 640 ==
LOC: ANHED 23:00 → ANH3MEDSUR 06-01 00:53 → ANH2MED 06-01 01:03
PROVIDERS: Emergency Medicine; Nurse Practitioner; Admitting Provider Internal Medicine; Emergency Provider Emergency Medicine; PCP Family Medicine; Visit Provider Nurse Practitioner Acute Care
DX: E86.0 Dehydration (principal); U07.1 COVID-19; N39.0 Urinary tract infection, site not specified; I48.21 Permanent atrial fibrillation; G30.1 Alzheimer's disease with late onset; F02.80 Dementia in other diseases classified elsewhere, unspecified severity, without behavioral disturbance, psychotic disturbance, mood disturbance, and anxiety; Z88.0 Allergy status to penicillin; Z85.3 Personal history of malignant neoplasm of breast; Z87.891 Personal history of nicotine dependence; Z79.01 Long term (current) use of anticoagulants
CPT/HCPCS: 36415; 70450; 71045; 80048; 80053; 81001; 83605; 83735; 85025; 85055; 87040; 87086; 87637; 94640; 96361; 96365; 97161; 97530; 99285; A9270; J1956; J7030

== ENCOUNTER 2023-06-08 20:43 | Emergency (ER) | payer OTHER, MEDICARE, SELFPAY ==
[2023-06-08] VITALS (12 sets, daily range): BP systolic 103–122; BP diastolic 77–99; PULSE 108–166; RESP 15–30; TEMP 36.9; O2SAT 96–100
--- NOTE | ~2023-06-08 | XR_ITS ---
EXAMINATION: XR chest 1V DATE: 06/08/2023 23:08 INDICATION: Lethargy. Atrial fibrillation. TECHNIQUE: A single frontal view of the chest was obtained. COMPARISON: Chest single view 05/31/2023 FINDINGS: There are airspace opacities in the lower lung zones. There is a small right pleural effusi on. No pneumothorax. Cardiomegaly is noted. There are surgical clips in right breast. IMPRESSION: 1. Worsened airspace opacities in the lower lung zones, consistent with atelectasis versus pneumonia. 2. Small right pleural effusion. 3. Cardiomegaly. Reviewed, dictated and finalized at location A. E CUTTING SUPERVISOR IMPRESSION: 1. Worsened airspace opacities in the lower lung zones, consistent with atelect asis versus pneumonia. 2. Small right pleural effusion. 3. Cardiomegaly.
--- NOTE | ~2023-06-08 | CT_ITS ---
EXAMINATION: CT brain wo con DATE: 06/08/2023 23:01 INDICATION: Altered mental status. TECHNIQUE: Computed tomography (CT) of the head was performed without intravenous contrast. The mA wa s adjusted according to patient size. Iterative reconstruction technique was employed. The dose-lengt h product was 605.33 mGy-cm. COMPARISON: Head CT 06/01/2023 FINDINGS: There are scattered areas of low attenuation in the cerebral white matter. There is no intr acranial hemorrhage, acute infarction, or abnormal intracranial mass lesion. The ventricles are chang l in size. There is a right-sided craniotomy. There is mucosal thickening in the paranasal sinuses. T here are likely changes of right ocular lens replacement surgery. There is a radiopaque foreign body in inferior right periorbital region. IMPRESSION: 1. Stable mild nonspecific cerebral white matter disease, which likely represents chronic small vesse l ischemic disease. Reviewed, dictated and finalized at location A. HEEL FITTER MACHINE IMPRESSION: 1. Stable mild nonspecific cerebral white matter disease, which likely represen ts chronic small vessel ischemic disease.
--- NOTE | 2023-06-08 21:00 | ECG_ITS ---
Measurements Intervals [place] Rate: 130 P: MA: 0 QRS: 19 QRSD: 87 T: 0 QT: 296 QTc: 436 Interpretive Statements ATRIAL FIBRILLATION WITH RAPID VENTRICULAR RESPONSE VENTRICULAR PREMATURE COMPLEXES LOW QRS VOLTAGE- DIFFUSE LEADS CANNOT RULE OUT SEPTAL INFARCT, AGE INDETERMINATE BORDERLINE ST-T WAVE ABNORMALITY- DIFFUSE LEADS ABNORMAL ECG COMPARED TO ECG 11/12/2022 16:54:35 NO SIGNIFICANT CHANGES Electronically Signed On 06-09-2023 8:18:17 HVAC FIELD SERVICE TECHNICIAN by Gustavo Phillip D.O.
[2023-06-08] MEDS: SODIUM CHLORIDE 0.9% IV 2,000 ML 999 ML IV CONT (21:34)
[2023-06-08 21:46] LABS: Basophils Percent Auto 0.5 % (0.2-1.2); Eosinophils Absolute Auto 0.1 K/mm3 (0-0.3); Eosinophils Percent Auto 0.8 % (0-4.4); Hematocrit 42.7 % (37.0-47.0); Hemoglobin 13.5 g/dL (12.0-15.0); Immature Granulocyte Absolute 0.03 K/mm3 (0.00-0.031); Immature Granulocyte Percent A 0.5 % (0-0.5); Immature Platelet Fraction Pct 6.9 % (0.9-11.2); Lymphocytes Absolute Auto 0.56 K/mm3 (0.9-3.2); Lymphocytes Percent Auto 8.6 % (18.3-44.2); Mean Corpuscular HGB Conc 31.6 g/dl (32-36); Mean Corpuscular Volume 98.2 fl (80-100); Mean Platelet Volume 11.7 fl (7.4-10.4); Monocytes Absolute Auto 0.3 K/mm3 (0.1-0.6); Monocytes Percent Auto 4.7 % (2.6-8.5); Neutrophils Absolute Auto 5.6 K/mm3 (1.3-6.7); Neutrophils Percent Auto 84.9 % (45.5-73.1); Platelet Count Result 108 k/mm3 (150-375); Red Blood Count 4.35 M/mm3 (4.2-5.4); Red Cell Distribution Width 12.9 % (11.5-14.5); White Blood Count 6.5 K/mm3 (4.5-10.0)
[2023-06-08 21:56] LABS: INR 1.6; Partial Thromboplastin Time 39.2 SECONDS (22.3-36.8); Prothrombin Time 19.9 Seconds (11.1-14.7)
[2023-06-08 22:00] LABS: Ethanol < 10 mg/dL (<10); Lactic Acid Reflex 1.3 mmol/L (0.7-2.0)
[2023-06-08 22:05] LABS: Alanine Aminotransferase 19 U/L (6-35); Albumin Level 2.8 g/dL (3.5-5.1); Alkaline Phosphatase 84 U/L (38-126); Anion Gap 6 mmol/L (8-16); Aspartate Amino Transferase 20 U/L (14-36); Bilirubin,Total 0.8 mg/dL (0.2-1.3); Blood Urea Nitrogen 10 mg/dL (7-17); Calcium 8.7 mg/dL (8.4-10.2); Carbon Dioxide 26 mmol/L (22-30); Chloride 103 mmol/L (98-107); Creatine Kinase < 20 U/L (30-135); Estimated Glomerular Filt Rate > 60; Glucose 86 mg/dL (65-110); Lipase 43 U/L (23-300); Magnesium 1.8 mg/dL (1.6-2.3); Phosphorus 3.3 mg/dL (2.5-4.5); Potassium 3.3 mmol/L (3.4-5.0); Sodium 135 mmol/L (137-145)
[2023-06-08 22:16] LABS: NT Pro B Type Natriuretic Pept 4920 pg/mL (19.9-100); Troponin I < 0.012 ng/mL (0.000-0.034)
[2023-06-08 22:38] LABS: Glucose Point of Care 73 mg/dl (65-105)
[2023-06-08 23:22] LABS: Influenza A QL RT-PCR Negative (Negative); Influenza B QL RT-PCR Negative (Negative); RSV RNA, RT-PCR Negative (Negative); SARS-CoV-2 RNA PCR Positive (Negative)
[2023-06-08] MEDS: dilTIAZem HCl INJ 25 MG/5 ML VIAL 10 MG IV PUSH (23:37)
[2023-06-09 00:24] LABS: Bacteria Urine 3+ /hpf; Need Manual Microscopic Reviewed; RBC Urine >100 /hpf (0-2); Squamous Epithelial Cell Urine Moderate /hpf (Few); WBC Urine >100 /hpf
[2023-06-09 00:27] VITALS: BP 112/78; PULSE 117; RESP 15; O2SAT 98
[2023-06-09] MEDS: dilTIAZem HCl INJ 25 MG/5 ML VIAL 10 MG IV PUSH (00:27)
[2023-06-09 00:32] LABS: Appearance Urine Turbid (Clear); Bilirubin Urine Negative (Negative); Blood Urine 3+ (Negative); Color Urine Yellow (Yellow); Glucose Urine UA Negative (Negative); Ketones Urine 1+ mg/dL (Negative); Leukocyte Esterase Ur 2+ LEU/UL (Negative); Nitrate Urine Negative (Negative); Protein Urine 2+ mg/dL (Negative); Specific Grav Ur 1.017 (1.001-1.035); pH Urine 5.5 (5.0-9.0)
[2023-06-09 00:34] LABS: Add Urine Microscopic? YES
--- NOTE | 2023-06-09 00:51 | ED.GENADULT ---
HPI - General Adult General Chief complaint: Recheck/Abnormal Lab/Rx Stated complaint: abn labs Time Seen by Provider: 06/08/23 21:00 History of Present Illness HPI narrative: This is an 82-year-old female with advanced dementia, paroxysmal AFib presenting for lethargy. the patient is A&O x1 which is her baseline provide no useful information during the interview. Per the patient's daughter the patient is then in on the hospital for most of May. She was recently discharged for rehabilitation center where she has been doing well. The daughter was with her yesterday and she was essentially at her baseline and participating in physical therapy. Today she was more lethargic, and staff was concerned because she was not eating or drinking. Related Data Home Medications Medication Instructions Recorded Confirmed acetaminophen 325 mg tablet 650 mg PO BID 08/16/21 06/01/23 (Tylenol) Benefiber (guar gum) 1 tab-cap PO BID PRN Constipation 10/27/22 06/01/23 Cynny 1 tab-cap PO EVERY OTHER DAY 10/27/22 06/01/23 diahrea Allergies Allergy/AdvReac Type Severity Reaction Status Date / Time meperidine [From Demerol] Allergy Vomiting Verified 05/31/23 15:24 cefdinir AdvReac Severe Diarrhea Verified 05/31/23 15:24 Penicillins AdvReac Rash Verified 05/31/23 15:24 PMFSH Past Medical History Medical History Alzheimer's dementia Anticoagulation adequate Atrial fibrillation with normal ventricular rate Breast CA Mitral regurgitation Right acoustic neuroma Venous insufficiency (chronic) (peripheral) Surgical History Surgical History Hx of craniotomy Family History Family History Other Unknown family medical history Social History Social History Social History: Smoking packs per day: 2 Smoking cigarettes per day: 40.0 Years smoked: 25 Smoking pack-years: 50.00 Smoking status: Former smoker Tobacco type: cigarettes Second hand tobacco smoke exposure: No Alcohol intake: never Substance use: never Substance use type: does not use Lack of Transportation: No Lack of Food: Never True Current Housing: I Have Housing Concerned About Future Housing: No Difficulty Paying Gas/Electric Bills: No Difficulty Paying for Meds: No Currently Unemployed: No Education: Trade/Vocational Certificate Difficulty w/ Childcare or Family Care: No Living arrangements: with family Occupation/Education: retired Gender identity (if verbalized by the patient): Female Sexual Orientation (if Verbalized by the Patient): Straight or Heterosexual Spiritual care concerns: No Exam Narrative: APPEARANCE: appears older than her stated age, A&O x1 Head: atraumatic. EYES: Eyes are sunken, temporal wasting NOSE: Atraumatic NECK: Trachea midline RESPIRATORY: No increased rate of breathing CTAB CARDIOVASCULAR: rapid and irregular, no peripheral edema ABDOMINAL: Non-distended thus, soft nontender MUSCULOSKELETAl: No obvious deformities NEURO: Alert. Moving 4/4 extremities SKIN:: Warm, dry. Normal color, no skin breakdown Course Vital Signs Vital signs: Vital Signs Temperature 98.4 F 06/08/23 20:44 Pulse Rate 151 H 06/08/23 20:44 Respiratory Rate 17 06/08/23 20:44 Blood Pressure 112/77 06/08/23 20:44 Pulse Oximetry 98 06/08/23 20:44 Oxygen Delivery Room Air 06/08/23 20:44 Temperature 98.4 F 06/08/23 20:44 Pulse Rate 92 06/09/23 01:19 Respiratory Rate 15 06/09/23 01:19 Blood Pressure 102/86 06/09/23 01:19 Pulse Oximetry 98 06/09/23 01:19 Oxygen Delivery Room Air 06/08/23 20:44 Medical Decision Making [facility] Narrative Medical decision making narrative: -Course: This is an 82-year-old female with
[2023-06-09 00:56] LABS: Troponin I < 0.012 ng/mL (0.000-0.034)
[2023-06-09 01:19] VITALS: BP 102/86; PULSE 92; RESP 15; O2SAT 98
[2023-06-09 01:48] LABS: Amphetamine Screen Urine Negative (Negative); Barbiturate Screen Urine Negative (Negative); Benzodiazepines Screen Urine Negative (Negative); Cannabinoid Screen Urine Negative (Negative); Cocaine Screen Urine Negative (Negative); Methadone Screen Urine Negative (Negative); Opiate Screen Urine Negative (Negative); Phencyclidine Screen Urine Negative (Negative)
[2023-06-09 04:10] VITALS: PULSE 86; RESP 15; O2SAT 98
== END 2023-06-09 07:00 ==
PROVIDERS: Emergency Provider Emergency Medicine; PCP Family Medicine
DX: I48.0 Paroxysmal atrial fibrillation (principal); G30.9 Alzheimer's disease, unspecified; F02.80 Dementia in other diseases classified elsewhere, unspecified severity, without behavioral disturbance, psychotic disturbance, mood disturbance, and anxiety; Z20.822 Contact with and (suspected) exposure to COVID-19; I34.0 Nonrheumatic mitral (valve) insufficiency; I87.2 Venous insufficiency (chronic) (peripheral); Z66 Do not resuscitate; Z85.3 Personal history of malignant neoplasm of breast; Z87.891 Personal history of nicotine dependence; Z79.01 Long term (current) use of anticoagulants; Z79.899 Other long term (current) drug therapy
CPT/HCPCS: 36415; 70450; 71045; 80053; 80307; 81001; 82550; 82948; 83605; 83690; 83735; 83880; 84100; 84443; 84484; 85025; 85055; 85610; 85730; 87040; 87086; 87147; 87181; 87186; 87637; 93005; 96361; 96374; 96376; 99284; J7030

== ENCOUNTER 2023-07-22 15:42 | Emergency (ER) | payer MEDICARE, SELFPAY ==
--- NOTE | ~2023-07-22 | CT_ITS ---
EXAMINATION: CT brain wo con DATE: 07/22/2023 17:23 INDICATION: Fall. Dementia. TECHNIQUE: Computed tomography (CT) of the head was performed without intravenous contrast. The mA wa s adjusted according to patient size. Iterative reconstruction technique was employed. The dose-lengt h product was 983.67 mGy-cm. COMPARISON: Head CT 06/08/2023 FINDINGS: There are scattered areas of low attenuation in the cerebral white matter. There is no intr acranial hemorrhage, acute infarction, or abnormal intracranial mass lesion. The ventricles are chang l in size. There are changes of right-sided craniotomy and mastoidectomy. There are likely changes of right ocular lens replacement surgery. There is an implant at right ocular globe. The paranasal sinu ses are clear. IMPRESSION: 1. Stable mild nonspecific cerebral white matter disease, which likely represents chronic small vesse l ischemic disease. Reviewed, dictated and finalized at location A. D HAULER IMPRESSION: 1. Stable mild nonspecific cerebral white matter disease, which likely represen ts chronic small vessel ischemic disease.
--- NOTE | ~2023-07-22 | CT_ITS ---
EXAMINATION: CT cervical spine wo con DATE: 07/22/2023 17:24 INDICATION: Fall in an anticoagulated patient with dementia TECHNIQUE: Computed tomography (CT) of the cervical spine was performed without intravenous contrast. Automated exposure control and iterative reconstruction technique were employed. The dose-length pro duct was 206.91 mGy-cm. COMPARISON: None FINDINGS: Alignment is normal. Vertebral body heights are normal. No fracture. 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 Multilevel disc height loss, severe at C6-C7, moderate to severe at C5-C6 and moderate at C4-C5. Small posterior endplate osteophytes at each of these levels and disc b ulge at C3-C4 and C4-C5 resulting in multilevel minimal central canal stenosis. There is multilevel s evere bilateral cervical facet osteoarthritis along with moderate to severe right-sided predominant u ncovertebral osteoarthritis in the mid to lower cervical spine. This contributes to moderate neural f oraminal stenosis on the right at C5-C6 and mild on the right at C3-C4, C4-C5, C6-C7 and C7-T1 and on the left at C3-C4, C4-C5 and C6-C7. Atherosclerotic calcifications at the bilateral carotid bulbs. C ervical soft tissues are otherwise unremarkable. Visualized portion of the upper lungs are clear. IMPRESSION: 1. Moderate to severe cervical spondylosis. No acute osseous abnormality. Reviewed, dictated and finalized at location A. IC WELFARE DIRECTOR
[2023-07-22 16:08] VITALS: BP 102/79; PULSE 107; RESP 17; TEMP 36.6; O2SAT 100
--- NOTE | 2023-07-22 17:30 | ED.FALL ---
HPI - Fall General Chief Complaint: Fall Stated Complaint: ground level fall Time Seen by Provider: 07/22/23 16:59 History of Present Illness HPI Narrative: Patient is an 82-year-old female who presents to the emergency department this afternoon status post an unwitnessed fall at her nursing facility. Patient is currently on Eliquis. Patient does have a history of severe dementia and is alert and oriented times 0 at baseline. She is responsive to verbal stimuli and follows simple commands. Patient's daughter and power of ip technology transactions attorney is currently present at bedside. Patient has a Tse catheter in place due to history of urinary retention and recurrent urinary tract infections. Daughter does confirm that the patient is currently at her baseline, however, once her we checked for urinary tract infection. The remainder of history of present illness and review of system is limited secondary to patient's dementia. Related Data Home Medications Medication Instructions Recorded Confirmed acetaminophen 325 mg tablet 650 mg PO BID 08/16/21 06/25/23 (Tylenol) Benefiber (guar gum) 1 tab-cap PO BID PRN Constipation 10/27/22 06/25/23 Profista 1 tab-cap PO EVERY OTHER DAY 10/27/22 06/25/23 diahrea Allergies Allergy/AdvReac Type Severity Reaction Status Date / Time meperidine [From Demerol] Allergy Vomiting Verified 05/31/23 15:24 cefdinir AdvReac Severe Diarrhea Verified 05/31/23 15:24 Penicillins AdvReac Rash Verified 05/31/23 15:24 Review of Systems Review of Systems: Full review of system was limited secondary to patient's history of dementia. [facility] Past Medical History Medical History Alzheimer's dementia Anticoagulation adequate Atrial fibrillation with normal ventricular rate Breast CA Mitral regurgitation Right acoustic neuroma Venous insufficiency (chronic) (peripheral) Surgical History Surgical History Hx of craniotomy Family History Family History Other Unknown family medical history Social History Social History Social History: Smoking packs per day: 2 Smoking cigarettes per day: 40.0 Years smoked: 25 Smoking pack-years: 50.00 Smoking status: Former smoker Tobacco type: cigarettes Second hand tobacco smoke exposure: No Alcohol intake: never Substance use: never Substance use type: does not use Lack of Transportation: No Lack of Food: Never True Current Housing: I Have Housing Concerned About Future Housing: No Difficulty Paying Gas/Electric Bills: No Difficulty Paying for Meds: No Currently Unemployed: No Education: Trade/Vocational Certificate Difficulty w/ Childcare or Family Care: No Living arrangements: with family Occupation/Education: retired Gender identity (if verbalized by the patient): Female Sexual Orientation (if Verbalized by the Patient): Straight or Heterosexual Spiritual care concerns: No Exam Narrative: General: Alert, awake, afebrile, in no acute distress. HEENT: PERRL, no rhinorrhea, no post nasal drip, oropharynx clear. Neck: Trachea midline, no JVD, no lymphadenopathy. Cardiovascular: Regular rate and rhythm, no murmurs, rubs or gallops, no peripheral edema. Respiratory: Clear to auscultation bilaterally, no tachypnea, no wheezing, no rhonchi, no rubs, no respiratory distress. Abdomen: Soft, nontender, nondistended, no rebound, no guarding, no peritoneal signs. Musculoskeletal: No joint swelling or deformity, normal muscle tone. Skin: No rashes or petechia, no signs of infection. Psychiatric: At baseline, normal behavior and judgment for situation. Neurological: A&Ox0 which is baseline, responsive to verbal stimuli, follows simple commands, no focal deficits appreciated at this ti
[2023-07-22 18:06] VITALS: BP 99/78; PULSE 108; RESP 15; O2SAT 97
[2023-07-22 18:19] LABS: Appearance Urine Turbid (Clear); Bacteria Urine 2+ /hpf; Bilirubin Urine Negative (Negative); Blood Urine 2+ (Negative); Color Urine Yellow (Yellow); Glucose Urine UA Negative (Negative); Ketones Urine Negative (Negative); Leukocyte Esterase Ur 3+ LEU/UL (Negative); Nitrate Urine Positive (Negative); Protein Urine Trace mg/dL (Negative); Specific Grav Ur 1.016 (1.001-1.035); Squamous Epithelial Cell Urine None seen /hpf (Few); WBC Urine >100 /hpf; pH Urine 5.5 (5.0-9.0)
[2023-07-22 18:23] LABS: Add Urine Microscopic? YES
--- NOTE | 2023-07-22 18:40 | PC.NURSE ---
Report given to Nicole arthur [facility]
[2023-07-22 19:02] VITALS: BP 97/80; PULSE 101; RESP 18; O2SAT 97
== END 2023-07-22 19:41 ==
PROVIDERS: Emergency Provider Emergency Medicine; PCP Family Medicine
DX: S09.90XA Unspecified injury of head, initial encounter (principal); N39.0 Urinary tract infection, site not specified; R33.9 Retention of urine, unspecified; Z87.891 Personal history of nicotine dependence; G30.9 Alzheimer's disease, unspecified; F02.80 Dementia in other diseases classified elsewhere, unspecified severity, without behavioral disturbance, psychotic disturbance, mood disturbance, and anxiety; I48.91 Unspecified atrial fibrillation; Z79.01 Long term (current) use of anticoagulants; Z85.3 Personal history of malignant neoplasm of breast; W19.XXXA Unspecified fall, initial encounter
CPT/HCPCS: 70450; 72125; 81001; 87077; 87086; 87186; 99284